=== PATIENT | female | born 1945 | race Caucasian/White ===

== ENCOUNTER 2018-02-03 09:48 | Outpatient (CLI) | payer OTHER ==
--- NOTE | 2018-02-03 10:43 | CT ---
EXAM: CT of the chest without contrast History: Abnormal chest radiograph Comparison: Chest radiograph 03/28/2013, CT abdomen pelvis 12/16/2015 Technique: Multiplanar CT images through the thorax were obtained without the administration of IV c ontrast. Findings: Heart size is within normal limits. Coronary artery calcifications. No thoracic aortic a neurysm. No pathologically enlarged thoracic lymph nodes. Calcified bilateral hilar lymph nodes and calcified granulomas seen within the left lung. There is a micronodular infiltrate within the left l ower lobe with some of the nodules probably partially calcified. No pleural fluid and no pneumothorax . No change in the 6 mm right lower lobe noncalcified nodule. Within the visualized upper abdomen, atherosclerotic vascular calcifications of the abdominal aorta a nd its branches. Mild circumferential wall thickening of the distal esophagus. Calcified granulomas within the spleen. No acute osseous abnormalities. Impression: 1. Left lower lobe micronodular infiltrate with some of the nodules calcified and partially calcifie d. This is probably due to old granulomatous disease but recommend follow-up chest CT in 6 months to document stability or resolution. 2. Stable benign 6 mm right lower lobe lung nodule. 3. Coronary artery disease. 4. Mild circumferential wall thickening of the distal esophagus. This could represent esophagitis. Neoplasm not excluded. Recommend upper endoscopy.
== END 2018-02-03 09:49 | disposition home or self-care (01) ==
LOC: RAD 09:48
PROVIDERS: ATTEND Family Medicine
DX: R93.8 Abnormal findings on diagnostic imaging of other specified body structures (principal)

== ENCOUNTER 2018-02-07 12:31 | Outpatient (CLI) ==
--- NOTE | 2018-02-07 14:15 | DEXA ---
EXAM: Bone Densitometry DEXA HISTORY: Postmenopausal COMPARISON: None FINDINGS: DEXA scan of the lumbar spine was performed. Quality of the study is good. Bone mineral density is 1 .183 grams per square centimeter. T-score is 0.0. Z-score is 0.7. DEXA scan right and left hip was performed. Quality of the study is good. Bone mineral density mean total is 1.042 grams per square centimeter. T-score is 0.3 Z-score is .2. Bone mineral density of the mean femoral neck is 0.902 with a T score of negative 1.0 and a Z score of 0.2. IMPRESSION: 1. Lumbar spine: Normal bone marrow density. 2. Right and left hip: Normal bone marrow density 3. Right and left femoral neck: Borderline osteopenia 4. 10 year risk for major osteoporotic fracture is 9.1% and for hip fracture is 1.2%. Reference Values according to World Health Organization criteria: T score greater than -1 is normal T score -1 to -2.5 is osteopenia T score less than -2.5 is osteoporosis.
== END 2018-02-07 12:32 | disposition home or self-care (01) ==
LOC: RAD 12:31
PROVIDERS: ATTEND Family Medicine
DX: Z12.31 Encounter for screening mammogram for malignant neoplasm of breast (principal); Z78.0 Asymptomatic menopausal state; Z13.820 Encounter for screening for osteoporosis
CPT/HCPCS: 77067

== ENCOUNTER 2022-05-13 20:08 | Observation (INO) ==
--- NOTE | 2022-05-13 20:13 | ED.PDOC ---
General ED Provider: Dr. MAKAYLA BROWNING Chief Complaint: Chest Pain Stated Complaint: Comes to the ER by EMS with chest pain radiating to the left Jaw and left arm that start two hours ago. 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 She had a chemical stress test Two years ago by Dr Pop in [place]. Time Seen by Provider: 05/13/22 20:13 Primary Care Provider: STACEY THAPA Nursing and Triage Documentation Reviewed and Agree: Yes Does patient meet sepsis criteria?: No System Inflammatory Response Syndrome: Temp 101F or Greater and Temp 96.8F or Lower Sepsis Protocol: For patient's 13 years and over: Temp is 96.8 and below OR 101 and greater Pulse >90 BPM Resp >20/minute Acutely Altered Mental Status Are patient's symptoms suggestive of a new infection, such as: -Pneumonia -Skin, Soft Tissue -Endocarditis -UTI -Bone, Joint Infection -Implantable Device -Acute Abdominal Infection -Wound Infection -Meningitis -Blood Stream Catheter Infection -Unknown Review of Systems Review Of Systems Constitutional: Reports No symptoms Eyes: Reports No symptoms Ears, Nose, Mouth, Throat: Reports No symptoms Respiratory: Reports No symptoms Cardiac: Reports Chest pain GI: Reports No symptoms : Reports No symptoms Musculoskeletal: Reports No symptoms Skin: Reports No symptoms Neurological: Reports Anxiety Hematologic/Lymphatic: Reports No symptoms All Other Systems: Reviewed and Negative [facility] Medical History (Updated 05/13/22 @ 22:15 by MAKAYLA BROWNING MD) Acute arthritis History of seasonal allergies Hypertension Thyroid disease Family History Mother Cardiac disease FATHER Cardiac disease BROTHER Cardiac disease Surgical History (Updated 03/24/20 @ 08:47 by [email or web address] [place]) Status post angioplasty of vein Status post appendectomy Physical Exam Physical Exam Appearance: Reports Ill-appearing Ill-appearing: Mild Pain Distress: Severe Eyes: Reports FARIBA, EOMI and Conjunctiva clear ENT: Reports Nose normal Neck: Supple Respiratory: Reports Airway patent, Breath sounds clear and Breath sounds equal Cardiovascular: Reports RRR, Pulses normal, No rub and No murmur GI/: Reports Not Examined Musculoskeletal: Reports Normal strength, ROM intact and No edema Skin: Reports Warm, Dry and Normal color Neurological: Reports Motor intact, Alert and Oriented Psychiatric: Reports Anxious Interpretation Radiology Interpretation Radiology Interpretation By: Radiologist Radiology Results: Positive (Low lung volumes with basilar atelectasis and chronic elevation of the hemidiaphragm on the right compared to the left.) Exam Interpreted: Portable CXR EKG Interpretation Rate: Normal Rhythm: Sinus (with sinus arrhytmia ) Ectopy: None [place]: Left ST Segment: Normal Interpretation: RBBB Re-Evaluation Re-Evaluation Time of Re-Evaluation: 20:49 Status: Improved Vital Signs Stable: Yes Pain Level: gone after 1 nitro Appearance: NAD Physician Notification Case Discussed Physician Notified: Dr Fernando Time of Notification: 21:50 (Admit to Hospitalist and consult Dr Webb.) Critical Care Note Critical Care Note Total Critical Care Time (mins): 0 Course Course Hematology/Chemistry: 05/13/22 20:30 05/13/22 20:30 Orders, Labs, Meds: Lab Review 05/13/22 05/13/22 05/13/22 20:30 20:30 20:35 WBC 7.12 RBC 5.00 Hgb 14.5 Hct 43.5 MCV 87.0 MCH 29.0 MCHC 33.3 RDW Coeff of [place] 13.2 Plt Count 249 Immature Gran % (Auto) 0.7 Neut % (Auto) 67.9 Lymph % (Auto) 21.2 [place] % (Auto) 6.3 Eos % (Auto) 3.2 Baso % (Auto) 0.7 Neut # (Auto) 4.8 Lymph # (Auto) 1.5 [place] # (Auto) 0.5 Eos # (Auto) 0.2 Baso # (Auto) 0.1 Immature Gran # (Auto) 0.1 Sodium 139.6 Potassium 4.32 Chloride 104.9 Carbon Dioxide 25.5 Anion Gap 13.52 BUN 19.2 H Creatinine 1.36 H Estimated GFR (MDRD) 38.00 BUN/Creatinine Ratio 14.11 Glucose 142.7 H Calcium 9.35 Total Bilirubin 0.39 AST 28.5 ALT 13.9 Alkaline Phosphatase 79.2 Total Creatine Kinase 43.6 Troponin I 0.063 Total Protein 8.90 H Albumin 4.75 Globulin 4.15 Albumin/Globulin Ratio 1.14 Urine Color Urine Clarity Urine pH Ur Specific [place] Urine Protein Urine Glucose (UA) Urine Ketones Urine Blood Urine Nitrite Urine Bilirubin Urine Urobilinogen Ur Leukocyte Esterase Ur Squamous Epith Cells Urine Bacteria SARS CoV-2 RNA Rapid ALEXANDRU Negative 05/13/22 20:35 WBC RBC Hgb Hct MCV MCH MCHC RDW Coeff of [place] Plt Count Immature Gran % (Auto) Neut % (Auto) Lymph % (Auto) [place] % (Auto) Eos % (Auto) Baso % (Auto) Neut # (Auto) Lymph # (Auto) [place] # (Auto) Eos # (Auto) Baso # (Auto) Immature Gran # (Auto) Sodium Potassium Chloride Carbon Dioxide Anion Gap BUN Creatinine Estimated GFR (MDRD) BUN/Creatinine Ratio Glucose Calcium Total Bilirubin AST ALT Alkaline Phosphatase Total Creatine Kinase Troponin I Total Protein Albumin Globulin Albumin/Globulin Ratio Urine Color Yellow Urine Clarity Clear Urine pH 6.5 Ur Specific [place] 1.025 Urine Protein 1+ H Urine Glucose (UA) Negative Urine Ketones Negative Urine Blood Negative Urine Nitrite Negative Urine Bilirubin Negative Urine Urobilinogen 0.2 Ur Leukocyte Esterase Negative Ur Squamous Epith Cells 2-5 Urine Bacteria Trace SARS CoV-2 RNA Rapid ALEXANDRU Orders Category Date Time Status EKG-(ED ONLY) Stat CARDIO 05/13/22 20:21 Completed ED APPLY O2 .ONCE EMERGENCY 05/13/22 20:21 Active ED ENTERPRISE APPLICATION DEVELOPER APPLIED .ONCE EMERGENCY 05/13/22 20:21 Active ED IV/MEDIPORT/POWERPORT .ONCE EMERGENCY 05/13/22 20:21 Active CBC W/ AUTO DIFF Stat LAB 05/13/22 20:30 Completed COMPREHENSIVE METABOLIC PANEL Stat LAB 05/13/22 20:30 Completed CREATINE KINASE Stat LAB 05/13/22 20:30 Completed SARS COV-2 RNA RAPID ALEXANDRU Stat LAB 05/13/22 20:35 Completed TROPONIN I Stat LAB 05/13/22 20:30 Completed URINALYSIS C & S IF INDICATED Stat LAB 05/13/22 20:35 Completed 0.9 % Sodium Chloride [Saline Flush] MEDS 05/13/22 20:21 Active 1 syr IVF PRN PRN Nitroglycerin [Nitrostat] MEDS 05/13/22 20:30 Discontinued 0.4 mg SL .STK-MED ONE Nitroglycerin [Nitrostat] MEDS 05/13/22 20:21 Active 0.4 mg SL Q5MIN X 3 DOSES PRN Sodium Chloride 0.9% [Sodium Chloride] 1,000 ml MEDS 05/13/22 20:21 Active IV 125 mls/hr CHEST, 1V AP ONLY Stat RADS 05/13/22 20:21 Completed Medications Generic Name Dose Route Start Last Admin Trade Name Freq PRN Reason Stop Dose Admin Acetaminophen 650 mg 05/13/22 21:59 Acetaminophen 325 Mg Tablet PO Q4H PRN Fever and Mild Pain Clopidogrel Bisulfate 75 mg 05/14/22 09:00 Clopidogrel Bisulfate 75 Mg Tablet PO DAILY [facility] Enalapril Maleate 10 mg 05/14/22 09:00 Enalapril Maleate 5 Mg Tablet PO DAILY [facility] Enoxaparin Sodium 30 mg 05/14/22 09:00 Enoxaparin Sodium 30 Mg/0.3 Ml Syr SUBCUT DAILY [facility] Hydromorphone HCl 1 mg 05/13/22 21:59 Hydromorphone Hcl 1 Mg/Ml Syringe IVP Q6HR PRN Severe Pain Sodium Chloride 1,000 mls @ 125 mls/hr 05/13/22 20:21 05/13/22 20:28 Sodium Chloride IV 05/14/22 04:20 125 mls/hr .Q8H STA Administration Sodium Chloride 1,000 mls @ 75 mls/hr 05/13/22 22:00 Sodium Chloride IV .[id number] [facility] Levothyroxine Sodium 88 mcg 05/14/22 09:00 Levothyroxine Sodium 88 Mcg Tablet PO DAILY [facility] Lorazepam 0.5 mg 05/14/22 09:00 Lorazepam 0.5 Mg Tablet PO DAILY [facility] Meloxicam 10 mg 05/14/22 09:00 Meloxicam 7.5 Mg Tablet PO DAILY [facility] Nitroglycerin 0.4 mg 05/13/22 20:21 05/13/22 20:31 Nitroglycerin 0.4 Mg Tab.Subl SL 0.4 mg Q5MIN X 3 DOSES PRN Administration Chest Pain Non-Formulary Medication 1 each 05/14/22 09:00 Metoprolol Fernandez-Hydrochlorothiaz PO BID [facility] Ondansetron HCl 4 mg 05/13/22 21:59 Ondansetron Hcl/Pf 4 Mg/2 Ml Sdv IVP Q6H PRN Nausea / Vomiting Sodium Chloride 1 syr 05/13/22 20:21 0.9% Sodium Chloride 10 Ml Disp.Syrin IVF PRN PRN To flush IV Vital Signs: Temp Pulse Resp BP Pulse Ox 05/13/22 20:09 96.8 F L 84 22 H 221/110 H 98 NEIL Risk Score Age >/= 65: Yes >/= 3 CAD Risk Factors: Yes Known CAD (Stenosis >/= 50%): No ASA Use in Past 7 Days: Yes Severe Angina (>/= 2 episodes in 24 hours): No EKG ST Changes >/= 0.5mm: No Postive Cardiac Marker: No NEIL Total Score: 3 NEIL Risk Score: Risk Score Odds of by 30D 0 0.1 (0.1-0.2) 1 0.3 (0.2-0.3) 2 0.4 (0.3-0.5) 3 0.7 (0.6-0.9) 4 1.2 (1.0-1.5) 5 2.2 (1.9-2.6) 6 3.0 (2.5-3.6) 7 4.8 (3.8-6.1) Discharge Plan Discharge Patient Disposition: PLACED OBSERVATION Discharge Problem: Chest pain, Angina pectoris, unspecified Did you review [place] SURVEILLANCE TECHNICIAN?: Not Applicable ED Provider: MAKAYLA BROWNING Condition: Fair Physician Progress Note: []
[2022-05-13] MEDS ORDERED: SODIUM CHLORIDE 1,000 ML IV STA (20:21)
[2022-05-13] MEDS ORDERED: NITROSTAT SL PRN (20:21)
[2022-05-13] MEDS ORDERED: NITROSTAT SL ONE (20:30)
[2022-05-13 20:36] LABS: BASOPHILS # (AUTO) 0.1 K/uL (0-0.2); BASOPHILS % (AUTO) 0.7 % (0.0-3.0); EOSINOPHILS # (AUTO) 0.2 K/ul (0.0-0.7); EOSINOPHILS % (AUTO) 3.2 % (0.0-7.0); HEMATOCRIT 43.5 % (37.0-47.0); HEMOGLOBIN 14.5 g/dl (12.0-16.0); IMMATURE GRANULOCYTE # (AUTO) 0.1 (0.0-1.0); IMMATURE GRANULOCYTE % (AUTO) 0.7 % (0.0-5.0); LYMPHOCYTES # (AUTO) 1.5 K/uL (0.60-3.4); LYMPHOCYTES % (AUTO) 21.2 (10.0-50.0); MEAN CORPUSCULAR HGB CONC 33.3 (31.8-35.4); MONOCYTES # (AUTO) 0.5 K/uL (0.4-2.0); MONOCYTES % (AUTO) 6.3 (0-10); NEUTROPHILS # (AUTO) 4.8 K/ul (2.0-6.9); NEUTROPHILS % (AUTO) 67.9 % (42.2-75.2); PLATELET COUNT 249 10^3/uL (140-440); RDW COEFFICIENT OF VARIATION 13.2 % (11.6-14.8); WHITE BLOOD COUNT 7.12 K/ul (4.6-10.2)
[2022-05-13 20:47] LABS: ALANINE AMINOTRANSFERASE 13.9 U/L (0-35); ALBUMIN 4.75 g/dL (3.5-5.0); ALKALINE PHOSPHATASE 79.2 U/L (53-141); ASPARTATE AMINO TRANSFERASE 28.5 U/L (14-36); BILIRUBIN,TOTAL 0.39 mg/dL (0.2-1.3); BLOOD UREA NITROGEN 19.2 mg/dL (7-17); CALCIUM 9.35 mg/dL (8.4-10.2); CARBON DIOXIDE 25.5 mmol/L (22-30.0); CHLORIDE 104.9 mmol/L (98-107); CREATINE KINASE 43.6 U/L (30-135); CREATININE 1.36 mg/dL (0.60-1.30); GLUCOSE 142.7 mg/dL (74-106); POTASSIUM 4.32 mmol/L (3.5-5.1); SODIUM 139.6 mmol/L (134.5-145); TOTAL PROTEIN 8.9 g/dL (6.3-8.2)
[2022-05-13 20:51] LABS: BILIRUBIN,URINE Negative (NEGATIVE); CLARITY,URINE Clear (CLEAR); COLOR,URINE Yellow (YELLOW); GLUCOSE, URINE (UA) Negative (NEGATIVE); KETONES,URINE Negative (NEGATIVE); LEUKOCYTE ESTERASE ,URINE Negative (NEGATIVE); NITRITE,URINE Negative (NEGATIVE); PH,URINE 6.5 (5-9); PROTEIN,URINE 1+ (NEGATIVE); URINE, BLOOD Negative (NEGATIVE); UROBILINOGEN,URINE 0.2 (0.2)
--- NOTE | 2022-05-13 20:55 | DI ---
EXAM: Single view of the chest. History: Chest pain. Findings: Heart size is normal. No consolidation. No pleural fluid and no pneumothorax. Coronary calcifications. No acute osseous abnormalities. Calcified granulomas are seen within the thorax. Impression: 1. No acute cardiopulmonary process. 2. Coronary artery disease
[2022-05-13 20:57] LABS: BACTERIA,URINE TRACE (NOT PRESENT)
[2022-05-13 20:58] LABS: TROPONIN I 0.063 ng/ml (0.0000-0.120)
[2022-05-13] MEDS ORDERED: ZOFRAN 4 MG/2 ML IVP PRN (21:59)
[2022-05-13] MEDS ORDERED: DILAUDID 1 MG/ML SYRINGE IVP PRN (21:59)
[2022-05-13] MEDS ORDERED: TYLENOL PO PRN (21:59)
[2022-05-13 22:50] VITALS: BMI 32.1
[2022-05-13] MEDS ORDERED: ATIVAN PO SCH (23:09)
[2022-05-13] MEDS: LOPRESSOR PO SCH (23:30)
[2022-05-14 04:24] LABS: BASOPHILS % (AUTO) 0.7 % (0.0-3.0); EOSINOPHILS # (AUTO) 0.1 K/ul (0.0-0.7); EOSINOPHILS % (AUTO) 2.3 % (0.0-7.0); HEMATOCRIT 37.1 % (37.0-47.0); HEMOGLOBIN 12.4 g/dl (12.0-16.0); IMMATURE GRANULOCYTE % (AUTO) 0.2 % (0.0-5.0); LYMPHOCYTES # (AUTO) 1.7 K/uL (0.60-3.4); LYMPHOCYTES % (AUTO) 29.9 (10.0-50.0); MEAN CORPUSCULAR HEMOGLOBIN 29.2 pg (27.0-31.0); MEAN CORPUSCULAR HGB CONC 33.4 (31.8-35.4); MEAN CORPUSCULAR VOLUME 87.5 fl (81.0-99.0); MONOCYTES # (AUTO) 0.5 K/uL (0.4-2.0); NEUTROPHILS # (AUTO) 3.4 K/ul (2.0-6.9); NEUTROPHILS % (AUTO) 58.9 % (42.2-75.2); PLATELET COUNT 233 10^3/uL (140-440); RDW COEFFICIENT OF VARIATION 13.2 % (11.6-14.8); RED BLOOD COUNT 4.24 10^6/ul (4.20-5.40); WHITE BLOOD COUNT 5.76 K/ul (4.6-10.2)
[2022-05-14] MEDS: SODIUM CHLORIDE 1,000 ML IV SCH ×2 (04:32→17:14)
[2022-05-14 04:37] LABS: BLOOD UREA NITROGEN 16.2 mg/dL (7-17); CALCIUM 9.21 mg/dL (8.4-10.2); CHLORIDE 110.1 mmol/L (98-107); CREATININE 0.95 mg/dL (0.60-1.30); GLUCOSE 106.6 mg/dL (74-106); POTASSIUM 4.01 mmol/L (3.5-5.1); SODIUM 141.1 mmol/L (134.5-145)
[2022-05-14 05:06] LABS: CREATINE KINASE 153.3 U/L (30-135)
[2022-05-14 05:24] LABS: CREATINE KINASE MB 13.2 ng/ml (0.0-2.38); TROPONIN I 3.75 ng/ml (0.0000-0.120)
[2022-05-14] MEDS ORDERED: ASPIRIN CHEWABLE PO STA (05:31)
[2022-05-14] MEDS ORDERED: SYNTHROID PO SCH (06:30)
[2022-05-14] MEDS ORDERED: VASOTEC PO SCH (09:00)
[2022-05-14] MEDS ORDERED: NORVASC PO SCH (09:00)
[2022-05-14] MEDS ORDERED: MOBIC PO SCH (09:00)
[2022-05-14] MEDS ORDERED: ATIVAN PO SCH (09:00)
[2022-05-14] MEDS ORDERED: METOPROLOL SU HYDROCHLOROTHIAZ PO SCH (09:00)
[2022-05-14] MEDS ORDERED: PLAVIX PO SCH (09:00)
[2022-05-14] MEDS ORDERED: LOVENOX SUBCUT SCH (09:00)
[2022-05-14] MEDS: LOPRESSOR PO SCH (09:26)
[2022-05-14] MEDS ORDERED: LIPITOR PO SCH (10:06)
[2022-05-14] MEDS ORDERED: IMDUR PO SCH (10:30)
--- NOTE | 2022-05-14 11:41 | PCM.DC ---
Final Diagnosis: NonSTEMI Physical Exam Appearance: Well-appearing Ill-appearing: None Pain Distress: None Eyes: FARIBA ENT: Oropharynx normal Neck: Supple Respiratory: Airway patent and Breath sounds clear Cardiovascular: RRR and Pulses normal GI/: Soft and Nontender Musculoskeletal: Normal strength and ROM intact Neurological: Sensation intact, Motor intact and Alert Psychiatric: Affect appropriate and Mood appropriate (1) Acute coronary syndrome: Status: Acute Code(s): I24.9 - Acute ischemic heart disease, unspecified SNOMED Code(s): 289828825 (2) Non-STEMI (non-ST elevated myocardial infarction): Status: Acute Code(s): I21.4 - Non-ST elevation (NSTEMI) myocardial infarction SNOMED Code(s): 97477114 Reason for Hospitalization: Chest pain. Prognosis/Condition at Discharge: Stable for transfer to [facility] at [facility] where Dr. Pop is at. Medications at Discharge: Medications at Discharge (Home Meds & RX) clopidogrel 75 mg tablet 75 mg PO DAILY 03/14/19 enalapril maleate 10 mg tablet 10 mg PO DAILY 03/14/19 levothyroxine 88 mcg tablet 88 mcg PO DAILY 03/14/19 lorazepam 0.5 mg tablet (Ativan) 0.5 mg PO BEDTIME 03/14/19 amlodipine 10 mg tablet 10 mg PO DAILY 05/13/22 metoprolol tartrate 50 mg tablet 50 mg PO BID 05/13/22 Lab/Diagnostics: Laboratory Tests 05/13/22 05/13/22 05/13/22 20:30 20:30 20:35 WBC 7.12 RBC 5.00 Hgb 14.5 Hct 43.5 MCV 87.0 MCH 29.0 MCHC 33.3 RDW Coeff of Crystal 13.2 Plt Count 249 Immature Gran % (Auto) 0.7 Neut % (Auto) 67.9 Lymph % (Auto) 21.2 [place] % (Auto) 6.3 Eos % (Auto) 3.2 Baso % (Auto) 0.7 Neut # (Auto) 4.8 Lymph # (Auto) 1.5 [place] # (Auto) 0.5 Eos # (Auto) 0.2 Baso # (Auto) 0.1 Immature Gran # (Auto) 0.1 Sodium 139.6 Potassium 4.32 Chloride 104.9 Carbon Dioxide 25.5 Anion Gap 13.52 BUN 19.2 H Creatinine 1.36 H Estimated GFR (MDRD) 38.00 BUN/Creatinine Ratio 14.11 Glucose 142.7 H Calcium 9.35 Total Bilirubin 0.39 AST 28.5 ALT 13.9 Alkaline Phosphatase 79.2 Total Creatine Kinase 43.6 CK-MB (CK-2) CK-MB (CK-2) % Troponin I 0.063 Total Protein 8.90 H Albumin 4.75 Globulin 4.15 Albumin/Globulin Ratio 1.14 Urine Color Urine Clarity Urine pH Ur Specific [place] Urine Protein Urine Glucose (UA) Urine Ketones Urine Blood Urine Nitrite Urine Bilirubin Urine Urobilinogen Ur Leukocyte Esterase Ur Squamous Epith Cells Urine Bacteria SARS CoV-2 RNA Rapid ALEXANDRU Negative 05/13/22 05/14/22 05/14/22 20:35 04:20 04:20 WBC 5.76 RBC 4.24 Hgb 12.4 Hct 37.1 D MCV 87.5 MCH 29.2 MCHC 33.4 RDW Coeff of [place] 13.2 Plt Count 233 Immature Gran % (Auto) 0.2 Neut % (Auto) 58.9 Lymph % (Auto) 29.9 [place] % (Auto) 8.0 Eos % (Auto) 2.3 Baso % (Auto) 0.7 Neut # (Auto) 3.4 Lymph # (Auto) 1.7 [place] # (Auto) 0.5 Eos # (Auto) 0.1 Baso # (Auto) 0.0 Immature Gran # (Auto) 0.0 Sodium Potassium Chloride Carbon Dioxide Anion Gap BUN Creatinine Estimated GFR (MDRD) BUN/Creatinine Ratio Glucose Calcium Total Bilirubin AST ALT Alkaline Phosphatase Total Creatine Kinase 153.3 H CK-MB (CK-2) 13.200 H* CK-MB (CK-2) % 8.6100 Troponin I 3.750 H* Total Protein Albumin Globulin Albumin/Globulin Ratio Urine Color Yellow Urine Clarity Clear Urine pH 6.5 Ur Specific [place] 1.025 Urine Protein 1+ H Urine Glucose (UA) Negative Urine Ketones Negative Urine Blood Negative Urine Nitrite Negative Urine Bilirubin Negative Urine Urobilinogen 0.2 Ur Leukocyte Esterase Negative Ur Squamous Epith Cells 2-5 Urine Bacteria Trace SARS CoV-2 RNA Rapid ALEXANDRU 05/14/22 04:20 WBC RBC Hgb Hct MCV MCH MCHC RDW Coeff of [place] Plt Count Immature Gran % (Auto) Neut % (Auto) Lymph % (Auto) [place] % (Auto) Eos % (Auto) Baso % (Auto) Neut # (Auto) Lymph # (Auto) [place] # (Auto) Eos # (Auto) Baso # (Auto) Immature Gran # (Auto) Sodium 141.1 Potassium 4.01 Chloride 110.1 H Carbon Dioxide 24.0 Anion Gap 11.01 BUN 16.2 Creatinine 0.95 Estimated GFR (MDRD) 57.00 BUN/Creatinine Ratio 17.05 Glucose 106.6 H Calcium 9.21 Total Bilirubin AST ALT Alkaline Phosphatase Total Creatine Kinase CK-MB (CK-2) CK-MB (CK-2) % Troponin I Total Protein Albumin Globulin Albumin/Globulin Ratio Urine Color Urine Clarity Urine pH Ur Specific [place] Urine Protein Urine Glucose (UA) Urine Ketones Urine Blood Urine Nitrite Urine Bilirubin Urine Urobilinogen Ur Leukocyte Esterase Ur Squamous Epith Cells Urine Bacteria History: Chest pain. Findings: Heart size is normal. No consolidation. No pleural fluid and no pneumothorax. Coronary calcifications. No acute osseous abnormalities. Calcified granulomas are seen within the thorax. Impression: 1. No acute cardiopulmonary process. 2. Coronary artery disease EKG - at 0537 today, NSR at 68. Inc. RBBB. No ectopy. Normal axes. No ST or TW changes. Education Provided to Patient and Family: Per nursing staff. Follow-ups: Dr. Pop after d/c from [facility], and PCP Dr. Garces. Discharge Disposition: Transfer Hospital Course: Admitted with CP, which resolved with one NTG and has not returned. EKG had borderline ischemic changes in ED, resolved. Initial troponin neg, repeat after admit elevate at 3.7. Discussed with her drainlayer, Dr. Pop, he would like her transferred to [facility], awaiting a bed to open up. Seen here by Dr. Webb, echo unremarkable with normal LV function and EF. Patient is on lovenenox, ASA, and plavix. Added NTP. Patient intolerant of statins. No beds at [facility], to [facility], drainlayer Dr. Pelletier accepts, who would like patient heparinized vs. lovenox. Nursing staff informed they did not have time to start heparin before transfer, should not be a problem, had lovenox. Plan: Transfer to [facility]. Dx NSTEMI. This d/c note done after a [id number]-ufav evaluation, and with documentation requiring 45 minutes of time.
[2022-05-14] MEDS ORDERED: NITRO-BID TD SCH (12:00)
[2022-05-14 12:27] LABS: CREATINE KINASE 181.5 U/L (30-135)
[2022-05-14 12:44] LABS: CREATINE KINASE MB 13.4 ng/ml (0.0-2.38)
[2022-05-14 12:45] LABS: TROPONIN I 4.66 ng/ml (0.0000-0.120)
--- NOTE | 2022-05-14 13:20 | ECHO2D ---
Date of Exam: 05/14/2022 Ordering Physician: DR. THAPA Room #: [id number] Reason for Echo: CHEST PAIN, ANGINA M-Mode Normal Adult Results LV Dimensions Normal Adult Results AoV Opening excursions >1.6 >1.6 LVEDD-base- 3.5-5.8 4.3 Ao root dimensions 2.0-3.7 3.0 LVESD-base- 3.1-4.6 L. Atrium dimensions 1.9-3.8 4.4 Post. Wall thickness 0.8-1.1 1.3 IV septum (thickness) 0.7-1.2 1.3 Post. Wall excursion 0.72-1.3 NORMAL Septal motion NORMAL Systolic motion R. Ventricular cavity 1.5-2.0 NORMAL LVEF 60% 64% Paradoxical septal wall motion NORMAL 2-D : ENLARGED LEFT ATRIAL CAVITY 2-D M Mode Echocardiogram was performed using apical four chamber and left parasternal long and short axis views. Mitral, tricuspid and aortic valves appear to be normal. Contractility of the left ventricle seems to be normal, so is the cavity size. Enlarged left atrial cavity seen. Aortic root appears to be normal. There is no pericardial effusion. There is no thrombus noted in the left ventricle or left atrial cavity. M-MODE: MV: NORMAL AV: NORMAL TV: NORMAL PV: CHAMBER SIZE: ENLARGED LEFT ATRIAL CAVITY WALL MOTION: NORMAL PERICARDIUM: NORMAL INTERPRETATION: 1. LEFT VENTRICULAR HYPERTROPHY WITH ENLARGED LEFT ATRIAL CAVITY 2. NORMAL LEFT VENTRICULAR CONTRACTILITY AND LEFT VENTRICLE SIZE 3. NORMAL VALVES MTDD
[2022-05-14 13:23] VITALS: BP 153/72; TEMP 97
[2022-05-15] MEDS ORDERED: ASPIRIN EC PO SCH (08:30)
[2022-05-15] MEDS ORDERED: ASPIRIN CHEWABLE PO SCH (09:00)
--- NOTE | 2022-05-17 13:28 | CONS ---
DATE OF CONSULTATION: 05/14/22 REASON FOR CONSULTATION: Chest pain HISTORY OF PRESENT ILLNESS: 76 year old white female came to the emergency room on 05/13/22 with having jaw pain both sides going to the left shoulder and left arm, part of the chest which lasted two hours and was relieved when she was given nitroglycerin in the emergency room. The patient has similar episode nearly a week ago. She denies of having any sweating maybe she was mildly short of breath at the time when the chest pain was there. REVIEW OF SYSTEMS: CONSTITUTIONAL: No night sweats. No fatigue, malaise, lethargy. No fever or chills. HEENT: Eyes: No visual changes. No eye pain. No eye discharge. ENT: No sinus drainage. No epistaxis. No sinus pain. No sore throat. No odynophagia. No ear pain. No congestion. RESPIRATORY: No cough, no congestion. No hemoptysis. No shortness of breath. CARDIOVASCULAR: No angina symptoms. No CHF symptoms. No atypical chest pain for CAD. No palpitations. No orthopnea. GASTROINTESTINAL: No abdominal pain. No nausea or vomiting. No diarrhea or constipation. No hematemesis. No hematochezia. GENITOURINARY: No urgency. No frequency. No dysuria. No hematuria. No obstructive symptoms. No discharge. No pain. No significant abnormal bleeding. MUSCULOSKELETAL: No musculoskeletal pain. No joint swelling. NEUROLOGICAL: No headache. No neck pain. No syncope. No seizures. No dizziness. PSYCHIATRIC: Not anxious. No depression. No suicidal thoughts. No homicidal thoughts. SKIN: No rash. No lesions. No wounds. ENDOCRINE: No unexplained weight loss. No weight gain. HEMATOLOGIC/LYMPHATIC: No anemia. No purpura. No petechiae. No prolonged or excessive bleeding. No palpable lymph nodes. MEDICATIONS: Clopidogrel Enalapril Levothyroxine Ativan Amlodipine Metoprolol ALLERGIES: None PAST MEDICAL HISTORY/PAST SURGICAL HISTORY: Right carotid endarterectomy denies atherosclerosis Hypertension SOCIAL/PERSONAL/FAMILY HISTORY: Family history of heart disease. The patient lives by herself. Nonsmoker. No alcohol abuse. PHYSICAL EXAMINATION: GENERAL: The patient is oriented to time, place and person. VITAL SIGNS: Temperature 97.4, pulse 70, respiratory rate 18, blood pressure 160/80 and pulse ox 93%. HEENT: Head normocephalic, atraumatic. Eyes: Extraocular muscles are intact. Pupils are equal, round and reactive to light and accommodation. Ears: No lesions. Nose appeared normal. Throat: No exudate or erythema. NECK: Supple. No JVD, no carotid bruit. No lymphadenopathy or thyromegaly. LUNGS: Clear to auscultation. Percussion note normal. Chest symmetrical. HEART: S1, S2, no S3. No murmurs. No cyanosis or clubbing. No ascites. Pulses: Dorsalis pedis and posterior tibial pulses +1 bilaterally. ABDOMEN: Soft. Nontender. Bowel sounds active. No CVA tenderness. No mass felt. EXTREMITIES: No edema. Full range of motion of all extremities, equal. NEUROLOGIC: No focal deficit. Cranial nerves II through XII are grossly intact. No headache, no double vision or headache. SKIN: Not dry. Intact. Turgor - normal. LYMPHATIC: No palpable lymph nodes/no lymphedema. MUSCULOSKELETAL: Normal joints with no swelling. Muscle tone is normal. LABS: EKG first one showed ST depression in 1 and AVL. Second EKG today does not show those ST-T wave change present in the first EKG. The patient has right bundle branch block, LVH. Echo showed LVH with normal LV contractility and enlarged LA cavity. The patient's CK positive this morning with MB fraction of 13% with total CK of 154. Troponin 3.7 this morning. Admission CK and Troponin negative. ASSESSMENT: 1. Angina which seems to be stable at present time 2. Ischemic myocardial injury 3. Hypertension 4. Dyslipidemia 5. Anxiety disorder RECOMMENDATIONS: 1. Add Lipitor 40mg PO today and daily AM 2. Imdur 15mg twice a day 3. Continue Lovenox and Plavix 4. Continue Metoprolol and Amlodipine 5. The patient was given extra dose of Vasotec and Amlodipine yesterday 6. At present time the patient's condition is stable. The patient needs further work in a way of coronary angiogram. Has seen Dr. Pop in the past. She had chemical stress test a couple of years ago which was reported as normal. ADDENDUM: The patient has history of left carotid endarterectomy and is followed by vascular surgeon at [facility]. Case discussed with Dr. Madden. He is hospitalist and explained to him that she needs to be transferred for further test in a way of coronary angiogram. CONDITION: Stable, now Thank you very much for referral CODE: Level 5 MTDD
== END 2022-05-14 17:30 | disposition short-term general hospital (02) ==
LOC: ED 20:08 → MEDSURG A 20:08
PROVIDERS: ADMIT Internal Medicine Geriatric Medicine; ATTEND Emergency Medicine
DX: I21.4 Non-ST elevation (NSTEMI) myocardial infarction; F41.9 Anxiety disorder, unspecified; E78.5 Hyperlipidemia, unspecified; Z79.899 Other long term (current) drug therapy; Z20.822 Contact with and (suspected) exposure to COVID-19; I10 Essential (primary) hypertension; Z51.81 Encounter for therapeutic drug level monitoring; I24.9 Acute ischemic heart disease, unspecified

== ENCOUNTER 2024-08-06 10:18 | Inpatient (IN) ==
--- NOTE | 2024-08-06 11:13 | ED.PDOC ---
General ED Provider: Dr. LEE WILL MD Chief Complaint: Non-specific Complaint Stated Complaint: mult aches and pains Time Seen by Provider: 08/06/24 11:22 Information Source: Patient and Family Exam Limitations: No limitations Primary Care Provider: STACEY THAPA Nursing and Triage Documentation Reviewed and Agree: Yes Does Patient Take Opioids?: No Is Patient Opioid Naive?: Yes What is Opioid Naive?: *Opioid Naive implies the patient is not already taking opioids or not chronically receiving opioids on a daily basis. *PRN dosing is not "usually" associated with tolerance. *Patients are at higher risk of over-sedation and aspiration. Is Patient Opioid Tolerant?: No What is Opioid Tolerant?: *Opioid Tolerance implies less than the expected response to an opioid. *Acquired tolerance is defined by the patient taking 60mg of oral morphine daily (or equianalgesic dose of another opioid) for 1 week or more. *Often associated with chronic pain. *May take more than usual dose to achieve desired pain control. Miscellaneous Complaint Exam Febrile Illness/Adult Complaint/Exam Onset/Duration: 2-day history Symptoms Are: Still present Timing: Constant Highest Temperature Recorded: 99.5 Initial Severity: Moderate Current Severity: Moderate Aggravating: Reports None Alleviating: Reports None Associated Signs and Symptoms: Reports Cough, Vomiting, Arthralgia, Myalgia and Altered mental status; Denies Headache, Sore throat, Nausea, Chills, Dysuria or Rash Related History: Reports Similar episode (With influenza years ago) Pseudomonas Risk Factors: Reports None Current Antibiotic Use: No Specific Findings: Absent Meningeal signs, Joint swelling, Erythema, Cellulitis, Lymphadenopathy or CVA tenderness Differential Diagnoses: Abdominal Infection, Bacteremia, Pneumonia, Sepsis and Viremia (Influenza, RSV, COVID) Review of Systems Review Of Systems Constitutional: Reports Fever, Malaise, Weakness and Loss of appetite; Denies Chills or Diaphoresis Eyes: Reports No symptoms Ears, Nose, Mouth, Throat: Reports No symptoms Respiratory: Reports Cough; Denies Shortness of Breath, Stridor or Wheezing Cardiac: Reports No symptoms GI: Reports Vomiting; Denies Diarrhea or Nausea : Denies Burning, Dysuria, Frequency, Flank pain, Hematuria or Urgency Musculoskeletal: Reports Back pain, Joint pain and Muscle stiffness Skin: Reports No symptoms Neurological: Reports Cognitive dysfunction and Weakness Endocrine: Reports No symptoms Hematologic/Lymphatic: Reports No symptoms PFSH Medical History History of left heart catheterization 05/14/2022 Z98.890 - Other specified postprocedural states (ICD-10) Pacemaker 05/17/2022 Z95.0 - Presence of cardiac pacemaker (ICD-10) Non-STEMI (non-ST elevated myocardial infarction) 05/13/22 I21.4 - Non-ST elevation (NSTEMI) myocardial infarction (ICD-10) History of stent insertion of renal artery 2 stents in each kidney Z98.890 - Other specified postprocedural states (ICD-10) Carotid artery disease I77.9 - Disorder of arteries and arterioles, unspecified (ICD-10) Thyroid disease E07.9 - Disorder of thyroid, unspecified (ICD-10) Hypertension I10 - Essential (primary) hypertension (ICD-10) History of seasonal allergies Z88.9 - Allergy status to unspecified drugs, medicaments and biological substances status (ICD-10) Acute arthritis M19.90 - Unspecified osteoarthritis, unspecified site (ICD-10) Family History Mother Cardiac disease FATHER Cardiac disease BROTHER Cardiac disease Social History Smoking and tobacco status: Former smoker Alcohol intake: never Surgical History H/O chest tube placement 05/2022 Z98.890 - Other specified postprocedural states (ICD-10) Status post appendectomy Z90.49 - Acquired absence of other specified parts of digestive tract (ICD- 10) Status post angioplasty of vein Z98.890 - Other specified postprocedural states (ICD-10) Female Reproductive History Menstrual Hx Hysterectomy: No Hx Tubal Ligation: No Physical Exam Physical Exam Appearance: Reports Ill-appearing, No pain distress, Well-nourished and Obese Ill-appearing: Moderate Pain Distress: None Eyes: Reports FARIBA and Conjunctiva clear ENT: Reports Ears normal, Nose normal and Oropharynx normal Neck: Supple Respiratory: Reports Breath sounds clear and Breath sounds equal Cardiovascular: Reports RRR, Pulses normal and No murmur GI/: Reports Soft, Nontender, No masses, Bowel sounds normal and No Organomegaly Musculoskeletal: Reports No calf tenderness, Limited ROM and Edema (Trace on the right) Skin: Reports Warm, Dry and Normal color Neurological: Reports Sensation intact, Motor intact, Cranial nerves intact and Oriented Psychiatric: Reports Depressed Interpretation Radiology Interpretation Radiology Interpretation By: ED Physician Radiology Results: No acute changes Exam Interpreted: CXR Course Course 08/06/24 11:30 08/06/24 11:30 Orders, Labs, Meds: Lab Review 08/06/24 08/06/24 11:28 11:30 WBC 4.73 RBC 4.68 Hgb 13.5 Hct 41.7 MCV 89.1 MCH 28.8 MCHC 32.4 RDW Coeff of Crystal 14.0 Plt Count 198 Immature Gran % (Auto) 0.4 Neut % (Auto) 59.5 Lymph % (Auto) 19.2 [place] % (Auto) 19.9 H Eos % (Auto) 0.2 Baso % (Auto) 0.8 Neut # (Auto) 2.8 Lymph # (Auto) 0.9 [place] # (Auto) 0.9 Eos # (Auto) 0.0 Baso # (Auto) 0.0 Immature Gran # (Auto) 0.0 Sodium 134.0 L Potassium 3.90 Chloride 96.0 L Carbon Dioxide 30.0 Anion Gap 11.90 BUN 22.0 H Creatinine 1.40 H Estimated GFR (MDRD) 36.00 BUN/Creatinine Ratio 15.71 Glucose 112.0 H Lactic Acid 1.60 Calcium 9.40 Total Bilirubin 0.70 AST 83.0 H ALT 49.0 H Alkaline Phosphatase 87.0 Total Protein 8.80 H Albumin 4.40 Globulin 4.40 Albumin/Globulin Ratio 1.00 Influ A Molecular Assay Negative by naat Influ B Molecular Assay Negative by naat RSV Antigen Negative by naat SARS CoV-2 RNA Rapid ALEXANDRU Positive H Orders Category Date Time Status CBC W/ AUTO DIFF Stat LAB 08/06/24 11:30 Completed CMP [COMPREHENSIVE METABOLIC PANEL] Stat LAB 08/06/24 11:30 Completed COVID [SARS COV-2 RNA RAPID ALEXANDRU] Stat LAB 08/06/24 11:28 Completed FLU A & B MOLECULAR [FLU A/B MOLECULAR] Stat LAB 08/06/24 11:28 Completed LACTIC ACID Stat LAB 08/06/24 11:30 Completed RSV Stat LAB 08/06/24 11:28 Completed URINALYSIS C & S IF INDICATED Stat LAB 08/06/24 11:18 Uncollected CXR [CHEST, 1V AP ONLY] Stat RADS 08/06/24 11:21 Completed EXAM: CHEST RADIOGRAPH TECHNIQUE: Single frontal chest radiograph. HISTORY: Cough and fever. COMPARISON: 05/07/2024 and older studies. FINDINGS: The patient is leaning and rotated to the right. The patient's chin and partially obscures the right upper chest. Hypoventilation. Left subclavian dual lead cardiac device, grossly stable in position. Calcified granulomas of the left mid lung, again noted. No pulmonary infiltrate is identified. No pleural effusion or pneumothorax is seen. Heart size is normal. No acute displaced rib fractures are identified. IMPRESSION: 1. No acute findings in the chest. Dictated By: FAHEEM JOE MD Dictated Date/Time: 08/06/24 1141 Vital Signs: Temp Pulse Resp BP Pulse Ox 08/06/24 10:28 99.8 F 91 20 162/79 H 94 L Discharge Plan Discharge Patient Disposition: PLACED OBSERVATION Discharge Problem: COVID-19 in immunocompromised patient Did you review [place] [employer]NAGER for ALL controlled substances?: Not Applicable ED Provider: LEE WILL Condition: Stable Physician Progress Note: Patient seen after triage. Initial discussion with family. Shared decision for placement of labs and x-rays done. COVID-positive. Urinalysis canceled. Discussed with hospitalist. Patient is mildly hypoxic with a saturation of 90% and a respiratory rate of 22. Family is unable to care for her at home.
[2024-08-06 11:34] LABS: BASOPHILS % (AUTO) 0.8 % (0.0-3.0); EOSINOPHILS % (AUTO) 0.2 % (0.0-7.0); HEMATOCRIT 41.7 % (37.0-47.0); HEMOGLOBIN 13.5 g/dl (12.0-16.0); IMMATURE GRANULOCYTE % (AUTO) 0.4 % (0.0-5.0); LYMPHOCYTES # (AUTO) 0.9 K/uL (0.60-3.4); LYMPHOCYTES % (AUTO) 19.2 (10.0-50.0); MEAN CORPUSCULAR HEMOGLOBIN 28.8 pg (27.0-31.0); MEAN CORPUSCULAR HGB CONC 32.4 (31.8-35.4); MEAN CORPUSCULAR VOLUME 89.1 fl (81.0-99.0); MONOCYTES # (AUTO) 0.9 K/uL (0.4-2.0); MONOCYTES % (AUTO) 19.9 (0-10); NEUTROPHILS # (AUTO) 2.8 K/ul (2.0-6.9); NEUTROPHILS % (AUTO) 59.5 % (42.2-75.2); PLATELET COUNT 198 10^3/uL (140-440); RED BLOOD COUNT 4.68 10^6/ul (4.20-5.40); WHITE BLOOD COUNT 4.73 K/ul (4.6-10.2)
--- NOTE | 2024-08-06 11:49 | DI ---
EXAM: CHEST RADIOGRAPH TECHNIQUE: Single frontal chest radiograph. HISTORY: Cough and fever. COMPARISON: 05/07/2024 and older studies. FINDINGS: The patient is leaning and rotated to the right. The patient's chin and partially obscures the right upper chest. Hypoventilation. Left subclavian dual lead cardiac device, grossly stable in position . Calcified granulomas of the left mid lung, again noted. No pulmonary infiltrate is identified. No pleural effusion or pneumothorax is seen. Heart size is normal. No acute displaced rib fractures are identified. IMPRESSION: 1. No acute findings in the chest.
[2024-08-06 11:52] LABS: ALBUMIN 4.4 g/dL (3.5-5.0); BILIRUBIN,TOTAL 0.7 mg/dL (0.2-1.3); CALCIUM 9.4 mg/dL (8.4-10.2); CREATININE 1.4 mg/dL (0.60-1.30); POTASSIUM 3.9 mmol/L (3.5-5.1); TOTAL PROTEIN 8.8 g/dL (6.3-8.2)
[2024-08-06 11:56] LABS: MOLECULAR FLU A NEGATIVE BY NAAT (NEGATIVE); MOLECULAR FLU B NEGATIVE BY NAAT (NEGATIVE); RSV MOLECULAR NEGATIVE BY NAAT (NEGATIVE); SARS COV-2 RNA RAPID NAAT POSITIVE (NEGATIVE)
[2024-08-06] MEDS ORDERED: TYLENOL PO PRN (12:33)
[2024-08-06] MEDS ORDERED: ZOFRAN SDV IVP PRN (12:33)
--- NOTE | 2024-08-06 12:50 | PCM ---
Date of Service Date Seen by Provider: 08/06/24 Time Seen by Provider: 13:00 Admit Day/Time Admission Date: 08/06/24 Admission Time: 12:17 Reason for Admission Chief Complaint: COVID POSITIVE Hospital Provider Hospital Provider: ABDIEL SERRANO PA-C, [facility] Primary Care Physician Primary Care Physician: ANA DUNLAP History of Present Illness History of Present Illness: Patient is a 79 year old female from home who presents for generalized weakness and confusion. Patient's daughter states she started feeling bad on 08/04. She could hardly get up yesterday and slid off the couch into the floor, requiring family's help. This morning she called family again asking to come help her. She was found in ER to have covid. CXR negative. Vitals stable. Labs unremarkable. However family did not feel safe taking her home at this time due to her condition. Case Discussed With Case Discussed With: Patient's case was discussed with the ER Physicians, Dr. Ryan. [facility] Medical History History of left heart catheterization 05/14/2022 Z98.890 - Other specified postprocedural states (ICD-10) Pacemaker 05/17/2022 Z95.0 - Presence of cardiac pacemaker (ICD-10) Non-STEMI (non-ST elevated myocardial infarction) 05/13/22 I21.4 - Non-ST elevation (NSTEMI) myocardial infarction (ICD-10) History of stent insertion of renal artery 2 stents in each kidney Z98.890 - Other specified postprocedural states (ICD-10) Carotid artery disease I77.9 - Disorder of arteries and arterioles, unspecified (ICD-10) Thyroid disease E07.9 - Disorder of thyroid, unspecified (ICD-10) Hypertension I10 - Essential (primary) hypertension (ICD-10) History of seasonal allergies Z88.9 - Allergy status to unspecified drugs, medicaments and biological substances status (ICD-10) Acute arthritis M19.90 - Unspecified osteoarthritis, unspecified site (ICD-10) Surgical History H/O chest tube placement 05/2022 Z98.890 - Other specified postprocedural states (ICD-10) Status post appendectomy Z90.49 - Acquired absence of other specified parts of digestive tract (ICD- 10) Status post angioplasty of vein Z98.890 - Other specified postprocedural states (ICD-10) Family History Mother Cardiac disease FATHER Cardiac disease BROTHER Cardiac disease Social History Smoking and tobacco status: Former smoker Alcohol intake: never Allergies Allergies Allergy/AdvReac Type Severity Reaction Status Date / Time orange juice AdvReac Severe Difficulty Verified 08/06/24 10:43 Swallowing barium iodide AdvReac Verified 08/06/24 10:43 cephalexin (From Keflex) AdvReac Verified 08/06/24 10:43 duloxetine AdvReac Verified 08/06/24 10:43 Iodinated Contrast Media AdvReac Verified 08/06/24 10:43 meloxicam (From Mobic) AdvReac Verified 08/06/24 10:43 NSAIDS (Non-Steroidal AdvReac Verified 08/06/24 10:43 Anti-Inflamma ofloxacin (From Floxin) AdvReac Verified 08/06/24 10:43 Sulfa (Sulfonamide AdvReac Verified 08/06/24 10:43 Antibiotics) Current Medications Home Medications clopidogrel 75 mg tablet 75 mg PO DAILY 03/14/19 [History Confirmed 08/06/24 Last Taken 05/31/22 09:00] enalapril maleate 10 mg tablet 10 mg PO DAILY 03/14/19 [History Confirmed 08/06/24 Last Taken 05/31/22 09:00] levothyroxine 88 mcg tablet 88 mcg PO DAILY 03/14/19 [History Confirmed 08/06/24 Last Taken 05/31/22 06:00] lorazepam 0.5 mg tablet (Ativan) 1 mg PO BEDTIME 03/14/19 [History Confirmed 08/06/24 Last Taken 05/30/22 21:00] metoprolol succinate 50 mg tablet,extended release 24 hr (Toprol XL) 50 mg PO BID #30 tabs 06/08/22 [Rx Confirmed 08/06/24 Last Taken Unknown] acetaminophen 500 mg tablet (Tylenol Extra Strength) 500 mg PO Q6H PRN Pain 01/22 [History Confirmed 08/06/24 Last Taken Unknown] albuterol sulfate 90 mcg/actuation breath activated powder inhaler 2 inh inhalation Q4H PRN shortness of breath #1 ea 10/05/23 [Rx Confirmed 08/06/24 Last Taken Unknown] amlodipine 2.5 mg tablet 5 mg PO BID 10/05/23 [History Confirmed 08/06/24 Last Taken Unknown] atorvastatin 40 mg tablet 40 mg PO DAILY 10/05/23 [History Confirmed 08/06/24 Last Taken Unknown] cholecalciferol (vitamin D3) 50 mcg (2,000 unit) capsule 50 mcg PO DAILY 10/05/23 [History Confirmed 08/06/24 Last Taken Unknown] fluticasone propionate 50 mcg/actuation nasal spray,suspension 2 spray intranasal DAILY PRN allergy symptoms 10/05/23 [History Confirmed 08/06/24 Last Taken Unknown] furosemide 20 mg tablet (Lasix) 20 mg PO DAILY 10/05/23 [History Confirmed 08/06/24 Last Taken Unknown] isosorbide mononitrate 30 mg tablet,extended release 24 hr 60 mg PO DAILY 10/05/23 [History Confirmed 08/06/24 Last Taken Unknown] polyethylene glycol 3350 17 gram/dose oral powder (Miralax) 17 g PO DAILY PRN constipation 10/05/23 [History Confirmed 08/06/24 Last Taken Unknown] potassium chloride 10 mEq tablet,extended release(part/cryst) 10 meq PO DAILY 10/05/23 [History Confirmed 08/06/24 Last Taken Unknown] nitroglycerin 0.4 mg sublingual tablet 0.4 mg sublingual Q5-15M PRN chest pain 08/06/24 [History Confirmed 08/06/24 Last Taken Unknown] ranolazine 500 mg tablet,extended release,12 hr 500 mg PO 2XD 08/06/24 [History Confirmed 08/06/24 Last Taken Unknown] Home Acetaminophen (Acetaminophen 325 Mg Tablet) 650 mg PO Q4H PRN PRN Reason: Mild Pain Enoxaparin Sodium (Enoxaparin Sodium 40 Mg/0.4 Ml Syr) 40 mg SUBCUT DAILY SAKINA Remdesivir 200 mg/ Sodium (Chloride) 250 mls @ 250 mls/hr IV ONCE ONE Stop: 08/06/24 15:13 Ondansetron HCl (Ondansetron Hcl/Pf 4 Mg/2 Ml Sdv) 4 mg IVP Q6H PRN PRN Reason: Nausea / Vomiting Opioid Naive vs. Tolerant Does Patient Take Opioids?: No Is Patient Opioid Naive?: Yes What is Opioid Naive?: *Opioid Naive implies the patient is not already taking opioids or not chronically receiving opioids on a daily basis. *PRN dosing is not "usually" associated with tolerance. *Patients are at higher risk of over-sedation and aspiration. Is Patient Opioid Tolerant?: No What is Opioid Tolerant?: *Opioid Tolerance implies less than the expected response to an opioid. *Acquired tolerance is defined by the patient taking 60mg of oral morphine daily (or equianalgesic dose of another opioid) for 1 week or more. *Often associated with chronic pain. *May take more than usual dose to achieve desired pain control. Review of Systems Constitutional: Reports Fatigue and Weakness Head: Reports Normocephalic and Atraumatic Cardiovascular: Denies Chest pain or Edema Respiratory: Reports Cough Gastrointestinal: Denies Nausea, Vomiting, Diarrhea, Abdominal pain or Melena Neurological: Reports Other (+confusion per family ) Physical examination Most Recent Vital Signs: Most Recent Vital Signs Temperature 99.8 F 08/06/24 10:28 Temperature Source Oral 08/06/24 10:28 Pulse Rate 91 08/06/24 10:28 Respiratory Rate 20 08/06/24 10:28 Blood Pressure 162/79 H 08/06/24 10:28 O2 Sat by Pulse Oximetry 94 L 08/06/24 10:28 Height 5 ft 6 in 08/06/24 10:28 Weight 90.9 kg 08/06/24 10:28 Telemetry Heart Rate 75 06/05/22 07:00 Appearance: Positive No Apparent Distress and Alert and Oriented x3 Skin: Positive [place], Warm, Good Turgor and Good Color; Negative Rashes HEENT: Positive Normocephalic and Atraumatic Neck: Positive Supple and Midline Trachea Chest/Lungs: Positive Clear to Auscultation Bilaterally; Negative Rales, Rhonci or Wheezes Heart: Positive RRR GI/: Positive Soft, Nontender, Bowel Sounds Normal and No Distention Neurological: Positive Cranial Nerves Intact, Alert, Oriented and Other (+generalized weakness ) Psychiatric: Positive Oriented x4, Appropriate Mood, Appropriate Affect and Other (+appears tired) Labs This Visit Labs This Visit: Labs This Visit 08/06/24 08/06/24 11:28 11:30 WBC 4.73 RBC 4.68 Hgb 13.5 Hct 41.7 MCV 89.1 MCH 28.8 MCHC 32.4 RDW Coeff of Crystal 14.0 Plt Count 198 Immature Gran % (Auto) 0.4 Neut % (Auto) 59.5 Lymph % (Auto) 19.2 [place] % (Auto) 19.9 H Eos % (Auto) 0.2 Baso % (Auto) 0.8 Neut # (Auto) 2.8 Lymph # (Auto) 0.9 [place] # (Auto) 0.9 Eos # (Auto) 0.0 Baso # (Auto) 0.0 Immature Gran # (Auto) 0.0 Sodium 134.0 L Potassium 3.90 Chloride 96.0 L Carbon Dioxide 30.0 Anion Gap 11.90 BUN 22.0 H Creatinine 1.40 H Estimated GFR (MDRD) 36.00 BUN/Creatinine Ratio 15.71 Glucose 112.0 H Lactic Acid 1.60 Calcium 9.40 Total Bilirubin 0.70 AST 83.0 H ALT 49.0 H Alkaline Phosphatase 87.0 Total Protein 8.80 H Albumin 4.40 Globulin 4.40 Albumin/Globulin Ratio 1.00 Influ A Molecular Assay Negative by naat Influ B Molecular Assay Negative by naat RSV Antigen Negative by naat SARS CoV-2 RNA Rapid ALEXANDRU Positive H Imaging Imaging: EXAM: CHEST RADIOGRAPH TECHNIQUE: Single frontal chest radiograph. HISTORY: Cough and fever. COMPARISON: 05/07/2024 and older studies. FINDINGS: The patient is leaning and rotated to the right. The patient's chin and partially obscures the right upper chest. Hypoventilation. Left subclavian dual lead cardiac device, grossly stable in position. Calcified granulomas of the left mid lung, again noted. No pulmonary infiltrate is identified. No pleural effusion or pneumothorax is seen. Heart size is normal. No acute displaced rib fractures are identified. IMPRESSION: 1. No acute findings in the chest. Review Statement Review Statement: I have independently reviewed and interpreted the labs/EKGs/imaging that were ordered by the ER provider. I have reviewed all outside records that are available currently in our EMR including imaging/notes/labs from previous visits. Plan Plan: 1. Acute metabolic encephalopathy in setting of covid 19 - Pt confused from her baseline per family, able to answer questions here appropriately but unsafe at home alone. Conservative measures. Treat fever prn. 2. Covid 19 - Discussed remdesivir IV x3, family agreeable. 3. Weakness - ptot consult 4. Hypertension - Cont home meds 5. Hyperlipidemia - Cont home meds 6. CAD - Cont home meds 7. Hypothyroidism - Cont home meds DVT Prophylaxis: Lovenox Time Spent: Greater than 80 minutes spent with patient, 50% of the time spent with this patient was devoted to counseling and coordination of care. [facility] minutes spent discussing advance care planning. Admit to: Obs Discussed Plan of Care with Dr. Inderjit Webb. Medications Medication Orders: Medications Ordered Category Date Time Status Acetaminophen [Tylenol] Meds 08/06/24 12:33 Active 650 mg PO Q4H PRN Ondansetron HCl/Pf [Zofran Sdv] Meds 08/06/24 12:33 Active 4 mg IVP Q6H PRN
[2024-08-06 13:50] VITALS: BMI 30.2
[2024-08-06] MEDS ORDERED: TESSALON PERLES PO PRN (14:38)
[2024-08-06] MEDS ORDERED: VENTOLIN HFA IH PRN (15:05)
[2024-08-06 15:07] LABS: PROTHROMBIN TIME 11.2 SEC (9.3-11.0)
[2024-08-06] MEDS: VEKLURY 200 MG in SODIUM CHLORIDE 250 ML IV ONE (15:38)
[2024-08-06] MEDS: HYDRALAZINE HCL IVP STA (16:41)
[2024-08-06] MEDS: LIPITOR PO SCH (20:23)
[2024-08-06] MEDS: CHLORASEPTIC SPRAY MM PRN (20:23)
[2024-08-06] MEDS: ATIVAN PO SCH (20:23)
[2024-08-06] MEDS: RANEXA PO SCH (20:23)
[2024-08-06] MEDS: TOPROL XL PO SCH (20:23)
[2024-08-06] MEDS: NORVASC PO SCH (20:23)
[2024-08-06] MEDS: ROBITUSSIN DM SYRUP PO PRN (20:46)
[2024-08-06] MEDS ORDERED: ATIVAN PO SCH (21:00)
[2024-08-07] MEDS: SYNTHROID PO SCH (05:14)
[2024-08-07] MEDS: LASIX TAB PO SCH (05:14)
[2024-08-07 05:34] LABS: BASOPHILS % (AUTO) 0.5 % (0.0-3.0); EOSINOPHILS # (AUTO) 0.1 K/ul (0.0-0.7); EOSINOPHILS % (AUTO) 0.9 % (0.0-7.0); HEMATOCRIT 43.7 % (37.0-47.0); HEMOGLOBIN 14.1 g/dl (12.0-16.0); IMMATURE GRANULOCYTE % (AUTO) 0.4 % (0.0-5.0); LYMPHOCYTES # (AUTO) 0.8 K/uL (0.60-3.4); MEAN CORPUSCULAR HEMOGLOBIN 28.5 pg (27.0-31.0); MEAN CORPUSCULAR HGB CONC 32.3 (31.8-35.4); MEAN CORPUSCULAR VOLUME 88.3 fl (81.0-99.0); MONOCYTES # (AUTO) 0.7 K/uL (0.4-2.0); NEUTROPHILS # (AUTO) 3.9 K/ul (2.0-6.9); NEUTROPHILS % (AUTO) 70.2 % (42.2-75.2); PLATELET COUNT 185 10^3/uL (140-440); RDW COEFFICIENT OF VARIATION 13.8 % (11.6-14.8); RED BLOOD COUNT 4.95 10^6/ul (4.20-5.40); WHITE BLOOD COUNT 5.52 K/ul (4.6-10.2)
[2024-08-07 05:48] LABS: ALANINE AMINOTRANSFERASE 50.4 U/L (0-35); ALBUMIN 4.39 g/dL (3.5-5.0); ALKALINE PHOSPHATASE 75.3 U/L (53-141); ASPARTATE AMINO TRANSFERASE 92.7 U/L (14-36); BILIRUBIN,TOTAL 0.47 mg/dL (0.2-1.3); BLOOD UREA NITROGEN 19.6 mg/dL (7-17); CALCIUM 9.03 mg/dL (8.4-10.2); CARBON DIOXIDE 25.3 mmol/L (22-30.0); CHLORIDE 98.1 mmol/L (98-107); CREATININE 1.03 mg/dL (0.60-1.30); GLUCOSE 130.5 mg/dL (74-106); POTASSIUM 4.1 mmol/L (3.5-5.1); SODIUM 132.9 mmol/L (134.5-145); TOTAL PROTEIN 9.14 g/dL (6.3-8.2)
[2024-08-07] MEDS: HYDRALAZINE HCL ONE (07:13)
[2024-08-07] MEDS ORDERED: NON-FORMULARY MEDICATION (Potassium Chloride 10 mEq tablet,ER particles/crystals) PO SCH (09:00)
[2024-08-07] MEDS: PLAVIX PO SCH (09:05)
[2024-08-07] MEDS: LOVENOX SUBCUT SCH (09:06)
[2024-08-07] MEDS: IMDUR PO SCH (09:06)
[2024-08-07] MEDS: MICRO-K CAP PO SCH (09:06)
[2024-08-07] MEDS: HYDRALAZINE HCL IVP ONE (11:40)
--- NOTE | 2024-08-07 11:45 | PCM.PROG ---
Date/Time Seen Date Seen by Provider: 08/07/24 Time Seen by Provider: 09:00 Provider Provider: ABDIEL SERRANO [facility]-C, [facility] Chief Complaint Chief Complaint: COVID POSITIVE Subjective Subjective: Patient was unable to participate with therapy this morning. Patient lethargic. But does open eyes and answers questions appropriately, then falls right back asleep. Denies any complaints other than sore throat. Has a weak non productive cough. Able to answer her name, place, and that she's in the hospital due to covid. Follows simple commands but very weak. Objective Appearance: Positive No Apparent Distress, Alert and Oriented x3 and Other (+lethargic ) Chest/Lungs: Positive Clear to Auscultation Bilaterally; Negative Rales, Rhonci or Wheezes Heart: Positive RRR GI/: Positive Soft, Nontender, Bowel Sounds Normal and No Distention Neurological: Positive Cranial Nerves Intact and Oriented; Negative Alert (+lethargic) or Muscle Strength 5/5 in Upper and Lower Extremities Bilaterally (+generalized weakness, no focal deficits ) Vital Signs Vital Signs: Vital Signs: Last 24 Hours 08/06/24 13:00 08/06/24 13:35 08/06/24 13:35 Temperature 98.1 F Temperature Source Temporal Artery Scan Pulse Rate 83 Respiratory Rate 21 H Blood Pressure Blood Pressure Mean Blood Pressure Left Arm 184/92 Blood Pressure Location Blood Pressure Position Sitting O2 Sat by Pulse Oximetry 95 Oxygen Delivery Method Room Air Room Air Oxygen Flow Rate Height 5 ft 6 in Weight 85.1 kg Telemetry Type Remote Telemetry Telemetry Monitoring Started Telemetry Heart Rate 79 Telemetry SPO2 93 EKG WA Interval 0.21 H EKG QRS Interval 0.09 Telemetry Strip Reading 1st degree AVB 08/06/24 14:00 08/06/24 14:00 08/06/24 15:00 Temperature 98.1 F Temperature Source Temporal Artery Scan Pulse Rate 83 Respiratory Rate 21 H Blood Pressure 184/92 H Blood Pressure Mean 122 Blood Pressure Left Arm Blood Pressure Location Left Arm Blood Pressure Position Supine O2 Sat by Pulse Oximetry 95 Oxygen Delivery Method Room Air Room Air Room Air Oxygen Flow Rate Height Weight Telemetry Type Telemetry Monitoring Telemetry Heart Rate Telemetry SPO2 EKG WA Interval EKG QRS Interval Telemetry Strip Reading 08/06/24 15:32 08/06/24 16:00 08/06/24 17:00 Temperature 97.7 F Temperature Source Temporal Artery Scan Pulse Rate 70 Respiratory Rate 20 Blood Pressure 171/68 H Blood Pressure Mean 102 Blood Pressure Left Arm Blood Pressure Location Left Arm Blood Pressure Position Sitting O2 Sat by Pulse Oximetry 91 L Oxygen Delivery Method Room Air Room Air Room Air Oxygen Flow Rate Height Weight Telemetry Type Telemetry Monitoring Telemetry Heart Rate Telemetry SPO2 EKG WA Interval EKG QRS Interval Telemetry Strip Reading 08/06/24 18:00 08/06/24 18:00 08/06/24 19:00 Temperature 97.8 F Temperature Source Temporal Artery Scan Pulse Rate 92 Respiratory Rate 15 Blood Pressure 177/78 H Blood Pressure Mean 111 Blood Pressure Left Arm Blood Pressure Location Left Arm Blood Pressure Position Supine O2 Sat by Pulse Oximetry 93 L Oxygen Delivery Method Room Air Room Air Oxygen Flow Rate Height Weight Telemetry Type Remote Telemetry Telemetry Monitoring Continues Telemetry Heart Rate 93 Telemetry SPO2 91 L EKG WA Interval 0.22 H EKG QRS Interval 0.10 Telemetry Strip Reading SR with 1st AVB 08/06/24 19:00 08/06/24 19:32 08/06/24 20:00 Temperature Temperature Source Pulse Rate Respiratory Rate 18 Blood Pressure Blood Pressure Mean Blood Pressure Left Arm Blood Pressure Location Blood Pressure Position O2 Sat by Pulse Oximetry Oxygen Delivery Method Room Air Room Air Room Air Oxygen Flow Rate Height Weight Telemetry Type Telemetry Monitoring Telemetry Heart Rate Telemetry SPO2 EKG WA Interval EKG QRS Interval Telemetry Strip Reading 08/06/24 21:00 08/06/24 21:39 08/06/24 22:00 Temperature 97.8 F Temperature Source Temporal Artery Scan Pulse Rate 84 Respiratory Rate 28 H Blood Pressure 169/68 H Blood Pressure Mean 101 Blood Pressure Left Arm Blood Pressure Location Left Arm Blood Pressure Position Supine O2 Sat by Pulse Oximetry 96 Oxygen Delivery Method Room Air Nasal Cannula Nasal Cannula Oxygen Flow Rate 2 Height Weight Telemetry Type Telemetry Monitoring Telemetry Heart Rate Telemetry SPO2 EKG WA Interval EKG QRS Interval Telemetry Strip Reading 08/06/24 22:55 08/07/24 00:00 08/07/24 01:00 Temperature Temperature Source Pulse Rate Respiratory Rate Blood Pressure Blood Pressure Mean Blood Pressure Left Arm Blood Pressure Location Blood Pressure Position O2 Sat by Pulse Oximetry Oxygen Delivery Method Nasal Cannula Nasal Cannula Nasal Cannula Oxygen Flow Rate Height Weight Telemetry Type Telemetry Monitoring Telemetry Heart Rate Telemetry SPO2 EKG WA Interval EKG QRS Interval Telemetry Strip Reading 08/07/24 01:00 08/07/24 02:00 08/07/24 02:00 Temperature Temperature Source Pulse Rate 82 Respiratory Rate Blood Pressure 165/74 H Blood Pressure Mean 104 Blood Pressure Left Arm Blood Pressure Location Left Arm Blood Pressure Position Supine O2 Sat by Pulse Oximetry Oxygen Delivery Method Nasal Cannula Nasal Cannula Oxygen Flow Rate 2 Height Weight Telemetry Type Bedside Monitor Telemetry Monitoring Continues Telemetry Heart Rate 86 Telemetry SPO2 EKG WA Interval 0.21 H EKG QRS Interval 0.07 Telemetry Strip Reading SR WITH 1ST DEGREE AVB 08/07/24 03:00 08/07/24 03:59 08/07/24 05:00 Temperature Temperature Source Pulse Rate Respiratory Rate Blood Pressure Blood Pressure Mean Blood Pressure Left Arm Blood Pressure Location Blood Pressure Position O2 Sat by Pulse Oximetry Oxygen Delivery Method Nasal Cannula Nasal Cannula Nasal Cannula Oxygen Flow Rate Height Weight Telemetry Type Telemetry Monitoring Telemetry Heart Rate Telemetry SPO2 EKG WA Interval EKG QRS Interval Telemetry Strip Reading 08/07/24 05:56 08/07/24 05:56 08/07/24 06:00 Temperature 97.3 F L Temperature Source Pulse Rate 78 Respiratory Rate 20 Blood Pressure 178/82 H Blood Pressure Mean 114 Blood Pressure Left Arm Blood Pressure Location Left Arm Blood Pressure Position Supine O2 Sat by Pulse Oximetry 96 Oxygen Delivery Method Nasal Cannula Nasal Cannula Nasal Cannula Oxygen Flow Rate 2 2 Height Weight Telemetry Type Telemetry Monitoring Telemetry Heart Rate Telemetry SPO2 EKG WA Interval EKG QRS Interval Telemetry Strip Reading 08/07/24 07:00 08/07/24 07:00 08/07/24 08:00 Temperature Temperature Source Pulse Rate Respiratory Rate Blood Pressure Blood Pressure Mean Blood Pressure Left Arm Blood Pressure Location Blood Pressure Position O2 Sat by Pulse Oximetry Oxygen Delivery Method Nasal Cannula Nasal Cannula Oxygen Flow Rate Height Weight Telemetry Type Bedside Monitor Telemetry Monitoring Continues Telemetry Heart Rate 86 Telemetry SPO2 EKG WA Interval 0.22 H EKG QRS Interval 0.08 Telemetry Strip Reading SR with 1st degree AVB 08/07/24 08:00 08/07/24 09:00 08/07/24 10:00 Temperature Temperature Source Pulse Rate Respiratory Rate 21 H Blood Pressure Blood Pressure Mean Blood Pressure Left Arm Blood Pressure Location Blood Pressure Position O2 Sat by Pulse Oximetry 98 Oxygen Delivery Method Nasal Cannula Nasal Cannula Nasal Cannula Oxygen Flow Rate 2 2 Height Weight Telemetry Type Telemetry Monitoring Telemetry Heart Rate Telemetry SPO2 EKG WA Interval EKG QRS Interval Telemetry Strip Reading 08/07/24 10:00 08/07/24 10:00 08/07/24 11:20 Temperature 96.9 F L 97.3 F L Temperature Source Temporal Artery Scan Pulse Rate 77 82 Respiratory Rate 23 H 24 H Blood Pressure 161/62 H 171/61 H Blood Pressure Mean 95 97 Blood Pressure Left Arm Blood Pressure Location Left Arm Left Arm Blood Pressure Position Sitting Sitting O2 Sat by Pulse Oximetry 98 98 Oxygen Delivery Method Nasal Cannula Nasal Cannula Nasal Cannula Oxygen Flow Rate 2.5 2.5 Height Weight Telemetry Type Telemetry Monitoring Telemetry Heart Rate Telemetry SPO2 EKG WA Interval EKG QRS Interval Telemetry Strip Reading Lab Results Lab Results: Lab Results: Last 24 Hours 08/07/24 08/06/24 08/06/24 05:27 11:30 11:28 WBC 5.52 RBC 4.95 Hgb 14.1 Hct 43.7 MCV 88.3 MCH 28.5 MCHC 32.3 RDW Coeff of Crystal 13.8 Plt Count 185 Immature Gran % (Auto) 0.4 Neut % (Auto) 70.2 Lymph % (Auto) 15.0 [place] % (Auto) 13.0 H Eos % (Auto) 0.9 Baso % (Auto) 0.5 Neut # (Auto) 3.9 Lymph # (Auto) 0.8 [place] # (Auto) 0.7 Eos # (Auto) 0.1 Baso # (Auto) 0.0 Immature Gran # (Auto) 0.0 PT 11.0 11.2 H INR 1.06 1.08 Sodium 132.9 L 134.0 L Potassium 4.10 3.90 Chloride 98.1 96.0 L Carbon Dioxide 25.3 30.0 Anion Gap 13.60 11.90 BUN 19.6 H 22.0 H Creatinine 1.03 1.40 H Estimated GFR (MDRD) 52.00 36.00 BUN/Creatinine Ratio 19.02 15.71 Glucose 130.5 H 112.0 H Lactic Acid 1.60 Calcium 9.03 9.40 Total Bilirubin 0.47 0.70 AST 92.7 H 83.0 H ALT 50.4 H 49.0 H Alkaline Phosphatase 75.3 87.0 Total Protein 9.14 H 8.80 H Albumin 4.39 4.40 Globulin 4.75 4.40 Albumin/Globulin Ratio 0.92 1.00 Influ A Molecular Assay Negative by naat Influ B Molecular Assay Negative by naat RSV Antigen Negative by naat SARS CoV-2 RNA Rapid ALEXANDRU Positive H Additional Comments Additional Comments: I have independently reviewed and interpreted the labs/EKGs/imaging ordered during this hospital stay. I have reviewed outside records that are available in our EMR that pertain to medical stay including imaging/notes/labs from previous visits. Active Medications Active Medications: Medications Generic Name Dose Route Start Last Admin Trade Name Freq PRN Reason Stop Dose Admin Acetaminophen 650 mg 08/06/24 12:33 Acetaminophen 325 Mg Tablet PO Q4H PRN Mild Pain Albuterol Sulfate 2 puff 08/06/24 15:05 Albuterol Sulfate 8 Gm Inhaler IH Q4H PRN sob Amlodipine Besylate 5 mg 08/06/24 21:00 08/07/24 09:06 Amlodipine Besylate 5 Mg Tablet PO 5 mg BID SAKINA Administration Atorvastatin Calcium 40 mg 08/06/24 21:00 08/06/24 20:23 Atorvastatin Calcium 20 Mg Tablet PO 40 mg BEDTIME SAKINA Administration Benzonatate 100 mg 08/06/24 14:38 Benzonatate 100 Mg Capsule PO TID PRN Cough Clopidogrel Bisulfate 75 mg 08/07/24 09:00 08/07/24 09:05 Clopidogrel Bisulfate 75 Mg Tablet PO 75 mg DAILY SAKINA Administration Enoxaparin Sodium 40 mg 08/07/24 09:00 08/07/24 09:06 Enoxaparin Sodium 40 Mg/0.4 Ml Syr SUBCUT 40 mg DAILY SAKINA Administration Furosemide 20 mg 08/07/24 06:00 08/07/24 05:14 Furosemide 20 Mg Tablet PO 20 mg QDAC2 SAKINA Administration Guaifenesin/Dextromethorphan 5 ml 08/06/24 14:38 08/06/24 20:46 Guaifenesin/Dextromethorphan 200/20 Mg/10 Ml Cup PO 5 ml Q4H PRN Administration Cough Remdesivir 100 mg/ Sodium 100 mls @ 200 mls/hr 08/07/24 12:00 Chloride IV 08/07/24 12:29 ONCE ONE Remdesivir 100 mg/ Sodium 100 mls @ 200 mls/hr 08/08/24 12:00 Chloride IV 08/08/24 12:29 ONCE ONE Isosorbide Mononitrate 60 mg 08/07/24 09:00 08/07/24 09:06 Isosorbide Mononitrate 30 Mg Tab.Er.24h PO 60 mg DAILY SAKINA Administration Levothyroxine Sodium 88 mcg 08/07/24 06:00 08/07/24 05:14 Levothyroxine Sodium 88 Mcg Tablet PO 88 mcg QDAC2 SAKINA Administration Lisinopril 5 mg 08/07/24 21:00 Lisinopril 5 Mg Tablet PO DAILY SAKINA Lorazepam 1 mg 08/06/24 21:00 08/06/24 20:23 Lorazepam 1 Mg Tablet PO 1 mg BEDTIME SAKINA Administration Metoprolol Succinate 50 mg 08/06/24 21:00 08/07/24 09:06 Metoprolol Succinate 50 Mg Tab.Er.24h PO 50 mg BID SAKINA Administration Ondansetron HCl 4 mg 08/06/24 12:33 Ondansetron Hcl/Pf 4 Mg/2 Ml Sdv IVP Q6H PRN Nausea / Vomiting Phenol/Menthol 1 spray 08/06/24 19:19 08/06/24 20:23 Phenol 1 Marissa Btl MM 1 spray Q2H PRN Administration SORE THROAT Potassium Chloride 10 meq 08/07/24 07:30 08/07/24 09:06 Potassium Chloride 10 Meq Capsule.Er PO 10 meq DAILYWM2 SAKINA Administration Ranolazine 500 mg 08/06/24 21:00 08/07/24 09:08 Ranolazine 500 Mg Tab.Er.12h PO 500 mg 2XD SAKINA Administration Plan Plan: 1. Acute metabolic encephalopathy in setting of covid 19 - Check UA and ABG. If normal will get a CT head to r/o CVA, although less likely given no focal deficits. 2. Covid 19 - Discussed remdesivir IV x3, family agreeable. 3. Weakness - ptot consult 4. Hypertension - Cont home meds 5. Hyperlipidemia - Cont home meds 6. CAD - Cont home meds 7. Hypothyroidism - Cont home meds DVT Prophylaxis: Lovenox Review Statement Review Statement: I have personally discussed and reviewed the patient's visit/currently labs/imaging/decision making with Dr. Webb, my supervising attending. Greater that 50 minutes spent with patient, 50% of the time spent with this patient was devoted to counseling and coordination of care.
[2024-08-07] MEDS: VEKLURY 100 MG in SODIUM CHLORIDE 100ML 100 ML IV ONE (12:04)
[2024-08-07 12:11] LABS: BILIRUBIN,URINE Negative (NEGATIVE); CLARITY,URINE Clear (CLEAR); COLOR,URINE Yellow (YELLOW); GLUCOSE, URINE (UA) Negative (NEGATIVE); KETONES,URINE Negative (NEGATIVE); LEUKOCYTE ESTERASE ,URINE Negative (NEGATIVE); NITRITE,URINE Negative (NEGATIVE); PH,URINE 5.5 (5-9); PROTEIN,URINE Trace (NEGATIVE); URINE, BLOOD Negative (NEGATIVE); UROBILINOGEN,URINE 0.2 (0.2)
[2024-08-07 12:14] LABS: HYALINE CASTS, URINE 0-2 (NOT PRESENT); SQUAMOUS EPITHELIAL CELL,UR 0-2 (0-5)
[2024-08-07 13:24] LABS: ABG O2 HGB 94.7 % (95-100); ABG PH 7.46 (7.35-7.45); BEecf 3.9 (-2.0-3.0); COHb 2.2 (0.5-1.5); HCO3 27.7 (21-28); MetHb 1.9 (0-1.5); TCO2 28.9 (19-24); sO2 98.3 % (94-98); tHb 14.7 g/dl (11.7-17.4)
--- NOTE | 2024-08-07 14:54 | CT ---
EXAM: CT HEAD WITHOUT CONTRAST HISTORY: Altered mental status COMPARISON: None TECHNIQUE: Serial axial images of the brain were obtained from the skull base to the vertex without IV contrast. FINDINGS: The ventricles, cisterns and sulci demonstrate generalized volume loss. The kearns-white ma tter junction is maintained. There is scattered low attenuation in the periventricular white matter. No midline shift or mass is identified. There is no abnormal intra or extra-axial fluid collection. The paranasal sinuses demonstrate scattered mucosal thickening. The mastoid air cells are clear. T he osseous calvarium is intact. IMPRESSION: 1. No acute intracranial. 2. Generalized volume loss and scattered microangiopathy. All CT scans are performed using dose optimization techniques as appropriate to the performed exam an d include at least one of the following: Automated exposure control, adjustment of the mA and/or kV according t o size, and the use of iterative reconstruction technique.
--- NOTE | 2024-08-07 16:25 | RS.BEDDYS ---
Subjective Date of Evaluation: 08/07/24 Date of Onset/Injury/Change in Status: 08/07/24 Diagnosis: COVID Prior Level of Function.....Patient was independent with: ADL's, Self Care, Caregiving and Ambulation/Mobility Current Level of Function: Patient is currently in isolation getting treatment for COVID. Current Diet: regular Current Subjective/complaints:: Patient was reported to have difficulty with regular meal. She has a persistent productive cough and orders were given for bedside swallow exam to determine the best PO diet. Food Presentation Solids Food Presented: Regular Behaviors/Comments: Patient had difficulty with oral manipulation and persistent coughing making consistency difficult to swallow. Food Presented: Mechanical Soft Behaviors/Comments: She was given mixed fruit in juice. She stated that the acidity from the juice hurt her throat. Food Presented: Pureed Behaviors/Comments: Tolerated pudding consistency with no difficulty. Patient stated that the smooth consistency was easier on her throat. Liquids Liquid Presented: Thin Behaviors/Comments: patient did not have difficulty with thin liquids when taking small drinks at a time. Recommendations: Dysphagia Evaluation Dietary Recommendations: Puree and Thin Dysphagia Swallow Precautions/Strategies: Sitting Upright (90 deg) and Small Bites and Sips Comments:: Patient is to be completely alert and awake Summary Dysphagia Evaluation Summary: Patient seen bedside to assess swallow and safe PO diet. She presented with a persistent, productive cough and stated that she had trouble eating her lunch. She was given a variety of consistencies and discussed the safety of her eating while she was recovering in the hospital. She agreed to try the puree consistency until she was able to swallow more regular textures. COASTAL AND ESTUARY SPECIALIST to follow to assess safety of diet and upgrade as able. Further Therapy Indicated?: Yes Rehab Potential: Good Short Term Goals Goal #1: Tolerate puree diet without s/s of aspiration. Goal to be met by: 08/14/24 Goal #2: Tolerate mechanical soft diet without s/s of aspiration. Goal to be met by: 08/14/24 Goal #3: Tolerate regular diet without s/s of aspiration. Goal to be met by: 08/14/24 Occupational Therapy Technician Goals Goal #1: Tolerate least restrictive PO diet to maintain adequate nutrition/hydration Goal to be met by: 08/14/24 Plan Duration of Treatment: 1 Week Frequency of Treatment: 1-2 X day, as tolerated Treatment Code (1) Dysphagia: Code(s): R13.10 - Dysphagia, unspecified
[2024-08-07] MEDS: ZESTRIL PO SCH (21:23)
[2024-08-08 06:09] LABS: BASOPHILS % (AUTO) 0.3 % (0.0-3.0); EOSINOPHILS # (AUTO) 0.1 K/ul (0.0-0.7); EOSINOPHILS % (AUTO) 0.8 % (0.0-7.0); HEMATOCRIT 41.7 % (37.0-47.0); HEMOGLOBIN 13.8 g/dl (12.0-16.0); IMMATURE GRANULOCYTE % (AUTO) 0.3 % (0.0-5.0); LYMPHOCYTES # (AUTO) 0.6 K/uL (0.60-3.4); LYMPHOCYTES % (AUTO) 9.7 (10.0-50.0); MEAN CORPUSCULAR HEMOGLOBIN 29.1 pg (27.0-31.0); MEAN CORPUSCULAR HGB CONC 33.1 (31.8-35.4); MEAN CORPUSCULAR VOLUME 87.8 fl (81.0-99.0); MONOCYTES # (AUTO) 0.8 K/uL (0.4-2.0); MONOCYTES % (AUTO) 11.8 (0-10); NEUTROPHILS # (AUTO) 4.9 K/ul (2.0-6.9); NEUTROPHILS % (AUTO) 77.1 % (42.2-75.2); PLATELET COUNT 177 10^3/uL (140-440); RDW COEFFICIENT OF VARIATION 13.7 % (11.6-14.8); RED BLOOD COUNT 4.75 10^6/ul (4.20-5.40); WHITE BLOOD COUNT 6.38 K/ul (4.6-10.2)
[2024-08-08 06:24] LABS: ALANINE AMINOTRANSFERASE 47.6 U/L (0-35); ALBUMIN 4.07 g/dL (3.5-5.0); ALKALINE PHOSPHATASE 66.9 U/L (53-141); ASPARTATE AMINO TRANSFERASE 82.1 U/L (14-36); BILIRUBIN,TOTAL 0.55 mg/dL (0.2-1.3); BLOOD UREA NITROGEN 28.4 mg/dL (7-17); CARBON DIOXIDE 25.4 mmol/L (22-30.0); CHLORIDE 96.7 mmol/L (98-107); CREATININE 1.23 mg/dL (0.60-1.30); GLUCOSE 137.6 mg/dL (74-106); POTASSIUM 3.7 mmol/L (3.5-5.1); TOTAL PROTEIN 8.48 g/dL (6.3-8.2)
[2024-08-08 06:26] LABS: PROTHROMBIN TIME 11.6 SEC (9.3-11.0)
[2024-08-08] MEDS: VEKLURY 100 MG in SODIUM CHLORIDE 100ML 100 ML IV ONE (11:21)
--- NOTE | 2024-08-08 11:35 | RS.PTINEVL ---
Subjective Patient information Date of Evaluation: 08/08/24 Date of Arrival on Unit: 08/06/24 Admitted From:: Home Diagnosis: COVID, weakness, impaired mobility Usual Living Arrangement: Alone Home Environment: House, Stairs (few) and Rail Medical History: Hypertension and Arthritis Medical History Comments:: PA, CAD, Thyroid disease, acute metabolic encep halopathy LATEX ALLERGY?: No Surgical History Comments:: pacemaker, appey Medications: see chart Subjective Information/ Patient Comments:: pt states that she feels terrible and that she feels "drunk". 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 Range of Motion ROM Right Upper Extremity AROM: WFL's (limited R shoulder AROM) Left Upper Extremity AROM: WFL's Right Lower Extremity AROM: WFL's Left Lower Extremity AROM: WFL's Muscle Strength Muscle Strength Right Upper Extremity: Mild Weakness (grossly 4- to 4/5) Left Upper Extremity: Mild Weakness (grossly 4- to 4/5) Right Lower Extremity: Mild Weakness (hip flex 3+/5, knee ext 4/5, flex 4-/5, ankle 4-/5) Left Lower Extremity: Mild Weakness (hip flex 3+/5, knee ext 4/5, flex 4-/5, ankle 4-/5) Sensation Sensation Right Upper Extremity: Intact/Normal Left Upper Extremity: Intact/Normal Right Lower Extremity: Intact/Normal Left Lower Extremity: Intact/Normal Palpation Palpation Findings: None/Normal Balance Sitting Balance and Reactions Static Sitting Balance: Poor (leans to R) Dynamic Sitting Balance: Poor Sitting Equilibrium Reactions: Delayed Left and Delayed Right Sitting Protective Reactions: Delayed Left and Delayed Right Standing Balance and Reactions Static Standing Balance: Poor Dynamic Standing Balance: Poor Standing Equilibrium Reactions: Delayed Left and Delayed Right Standing Protective Reactions: Delayed Left and Delayed Right Functional Mobility Bed Mobility Rolling R/L: Mod Assist and 1 person assist Scooting: Mod Assist and 1 person assist (to edge of bed ) Supine to Sit: Mod Assist and 1 person assist Transfers Sit to Stand: Min Assist and 2 person assist Stand to Sit: Min Assist and 2 person assist Safety Awareness Safety Awareness: Poor DANISH INDEX SCORE: n/a Ambulation Ambulation Assistive Device Used: Rolling Walker Orthotic/Prosthetic Device: No Distance: 5-6 steps Assistance needed with Ambulation: Min Assist and 2 person assist Gait Deviations: Forward posture, Short stride and Deviates from path Factors Affecting Ambulation: Decreased Balance, Weakness, Decreased Coordination, Decreased Safety, Cognitive Status and Limited Endurance Treatment time Units charged ADL: 1 (TA) Time with patient Length of Evaluation: 19 Total treatment time: 29 Patient Education Education Patient Education: Activity Modification and Education of Plan of Care Teaching Recipient: Patient Teaching Methods: Discussion (discussion regarding POC) Assessment Assessment Problem List:: Decreased level of function, Requires training/education, Decreased safety/Risk of falls, Weakness and Cognitive status limits abilities Rehab Potential: Fair Further Therapy Indicated?: Yes Candidate for Swing Bed for Therapy Services?: Feel pt may be a candidate for swing bed for therapy if pt cognitive status continues to improve. Evaluation Complexity: HISTORY: Medium, EXAM OF BODY SYSTEMS: Medium, CLINICAL PRESENTATION: Medium and CLINICAL DECISION MAKING: Medium Patient's Goal(s): Go back home Short Term Goals GOAL #1: pt independent with rolling and scooting to edge of bed. Goal to be met by: 08/11/24 GOAL #2: Transfer sup to/from sit min x 1 Goal to be met by: 08/11/24 GOAL #3: Transfer sit to/from stand min x 1 Goal to be met by: 08/11/24 GOAL #4: pt amb 25ft with rwx with min x 1 Goal to be met by: 08/11/24 GOAL #5: Improve BLE strength 4 to 4+/5 Goal to be met by: 08/11/[address] Goals GOAL #1: pt transfer sup to/from sit to/from stand CGA to SBA Goal to be met by: 08/13/24 GOAL #2: pt amb functional distance with rwx with CGA x 1 Goal to be met by: 08/13/24 GOAL #3: Ascend/descend 2-3 steps with HR with CGA x 1 Goal to be met by: 08/13/24 Plan Plan of Care: Therapeutic EX, Neuromuscular Re-Educ, Therapeutic Activity and Self-Care/Home Management Other:: gait training Frequency of Treatment: 1-2 X day, as tolerated Duration of Treatment: 5 days Anticipated Discharge Destination: undetermined Treatment Diagnosis (ICD 10 Codes): impaired balance R 26.81 gait difficulty R 26.2 weakness M62.81 COVID Has the Physician been added for Co-signature?: Yes
--- NOTE | 2024-08-08 12:00 | RS.OTINEVL ---
Subjective Patient information Date of Evaluation: 08/08/24 Date of Arrival on Unit: 08/06/24 Admitted From:: Home Diagnosis: Covid, Need for assistance with personal care, weakness PRECAUTIONS: Pt walks in flexed position and mental state is improving. Usual Living Arrangement: Alone Living Arrangement Comments: Pt has a puppy and lives alone. Pt drives. 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 Current Level of Function: Partially Dependent Comments: Pt is min A to stand, and min A to get to EOB and sit. Pt has slight or min limitations of the BUE. Strength is 3-/5. Current Equipment Used at Home: Walker, Cane, bed side commode, shower chair Interventions Objective Patient Orientation: Person and Situation Current Interventions: IV's and Oxygen Observation: Pt was more alert at times today. Pt BUE strength in shoulders is 3-/5. Pt reported LUE hurts her at times. Pt did brush her hair using BUE. Supine to sit Mod x 1. Sit to stand min x2. Sitting EOB, pt leaned to the Right for a few minutes. Pt stepped with small steps and in flexed posture. Interventions ROM Right Upper Extremity AROM: Slight limitation Left Upper Extremity AROM: Slight limitation Comments: BUE 3-/5. Pt does not have full AROM of shoulders. Strength Right Upper Extremity: Mild Weakness Left Upper Extremity: Mild Weakness Sensation Right Upper Extremity: Intact/Normal Left Upper Extremity: Intact/Normal Balance Sitting Balance Static Sitting Balance: Poor Dynamic Sitting Balance: Poor Standing Balance Static Standing Balance: Poor Dynamic Standing Balance: Poor ADL Skills Grooming Grooming: Min Assist Grooming Set-up: Sitting Comments:: Pt still has a hard time staying awake. Bathing Bathing UE: Mod Assist Bathing LE: Mod Assist, Max Assist and Verbal Cues Bathing Set-up: Bedside (Hopefully in a couple of days she will improve to a shower.) Dressing Dressing UE: Mod Assist Dressing LE: Max Assist and Verbal Cues Toilet Management Toilet Hygiene: Max Assist (Cannot stand with RW and complete personal hygiene.) Toilet Clothing Management: Max Assist (Pt cannot get brief over her feet independently. ) Functional Mobility Bed Mobility Rolling R/L: Mod Assist, Verbal Cues and Tactile Cues Scooting: Mod Assist Supine to Sit: Mod Assist Transfers Sit to Stand: Min Assist and 2 person assist Stand to Sit: Min Assist and 2 person assist Stand Pivot Transfers: Min Assist and 2 person assist Ambulation Weight Bearing Status: FWB Assistive Device Used: Rolling Walker Assistance needed with Ambulation: Min Assist and 2 person assist Safety Awareness Safety Awareness: Fair DANISH INDEX SCORE: . Additional Treatment Performed Time with patient Length of Evaluation: 17 Total treatment time: 17 Activities Do you enjoy playing games?: Yes Would you be interested in leaving your room for activities?: Yes Would you enjoy group activities?: Yes Do you have difficulty with your vision?: Yes Patient Interests:: Watching Television and Visiting/Socializing Patient Education Patient Education: Education of diagnosis, Home Exercise Program and Education of Plan of Care Teaching Recipient: Patient Teaching Methods: Discussion and Demonstration Assessment Problem List:: Decreased level of function, Requires training/education, Decreased safety/Risk of falls and Weakness Rehab Potential: Fair Further Therapy Indicated?: Yes Evaluation Complexity: HISTORY: Medium, EXAM OF BODY SYSTEMS: Medium and CLINICAL DECISION MAKING: Medium Patient's Goal(s): To be able to take care of herself and return home. Short Term Goals Goals GOAL 1: Pt to be CGA with standing at sink and brushing her teeth. Goal to be met by: 08/11/24 GOAL 2: Pt to be min A with UB dressing. Goal to be met by: 08/11/24 GOAL 3: Pt to be CGA with toilet transfers. Goal to be met by: 08/11/24 GOAL 4: Pt to increase dyn. std. bal. to Fair. Goal to be met by: 08/11/24 GOAL 5: Pt to be Independent with donning and doffing her brief. Goal to be met by: 08/11/24 GOAL 6: Pt to increase BUE strength to 4/5. Goal to be met by: 08/13/24 Care Home Goals GOAL 1: Pt to be Independent with ADLs. Goal to be met by: 08/13/24 GOAL 2: Pt to increase dyn. std. balance to Good-. Goal to be met by: 08/13/24 GOAL 3: Pt to increase BUE strength to 4+/5. Goal to be met by: 08/13/24 Plan Plan of Care: Therapeutic EX, Therapeutic Activity and Self-Care/Home Management Frequency of Treatment: 1-2 X day, as tolerated Duration of Treatment: 1 Week Anticipated Discharge Destination: Home Treatment Diagnosis (ICD 10 Codes): Z74.1 Need assistance with personal care, R53.1 Weakness, R26.81 Imp. bal. Has the Physician been added for Co-signature?: Yes
--- NOTE | 2024-08-08 12:27 | PCM.PROG ---
Date/Time Seen Date Seen by Provider: 08/08/24 Time Seen by Provider: 08:30 Provider Provider: ABD[facility]ERR[facility] Chief Complaint Chief Complaint: COVID POSITIVE Subjective Subjective: Patient was lethargic most of the day yesterday. Unable to participate with therapy. Today she answers questions appropriately and follows basic commands but keeps eyes closed. Denies any specific complaints. Has a weak cough, unable to get much up. Yesterday ct head w/o neg, UA neg, ABG unremarkable. Objective Appearance: Positive No Apparent Distress and Other (+oriented x3, lethargic ) Chest/Lungs: Positive Clear to Auscultation Bilaterally; Negative Rales, Rhonci or Wheezes Heart: Positive RRR GI/: Positive Soft, Nontender, Bowel Sounds Normal and No Distention Neurological: Positive Cranial Nerves Intact and Oriented; Negative Alert (+lethargic) or Muscle Strength 5/5 in Upper and Lower Extremities Bilaterally (+generalized weakness, no focal deficits ) Vital Signs Vital Signs: Vital Signs: Last 24 Hours 08/07/24 13:00 08/07/24 14:00 08/07/24 14:00 Temperature 97.6 F Temperature Source Temporal Artery Scan Pulse Rate 77 Respiratory Rate 19 Blood Pressure 177/67 H Blood Pressure Mean 103 Blood Pressure Location Left Arm Blood Pressure Position Supine O2 Sat by Pulse Oximetry 96 Oxygen Delivery Method Nasal Cannula Room Air Oxygen Flow Rate 2 Telemetry Type Bedside Monitor Telemetry Monitoring Telemetry Heart Rate 90 Telemetry SPO2 99 EKG GA Interval 0.22 H EKG QRS Interval 0.07 Telemetry Strip Reading SR with 1st degree AV Block 08/07/24 18:00 08/07/24 19:00 08/07/24 20:00 Temperature 97.7 F Temperature Source Temporal Artery Scan Pulse Rate 80 Respiratory Rate 22 H Blood Pressure 138/57 L Blood Pressure Mean 84 Blood Pressure Location Right Arm Blood Pressure Position Supine O2 Sat by Pulse Oximetry 94 L 95 Oxygen Delivery Method Room Air Nasal Cannula Oxygen Flow Rate 1 Telemetry Type Bedside Monitor Telemetry Monitoring Continues Telemetry Heart Rate 78 Telemetry SPO2 EKG GA Interval 0.22 H EKG QRS Interval 0.08 Telemetry Strip Reading SR WITH 1ST DEGREE AVB 08/07/24 20:00 08/07/24 21:02 08/08/24 01:00 Temperature 97.8 F Temperature Source Temporal Artery Scan Pulse Rate 75 Respiratory Rate 20 Blood Pressure 155/78 H Blood Pressure Mean 103 Blood Pressure Location Right Arm Blood Pressure Position Supine O2 Sat by Pulse Oximetry 95 Oxygen Delivery Method Nasal Cannula Nasal Cannula Oxygen Flow Rate 1 1 Telemetry Type Bedside Monitor Telemetry Monitoring Continues Telemetry Heart Rate 70 Telemetry SPO2 EKG GA Interval 0.22 H EKG QRS Interval 0.07 Telemetry Strip Reading SR WITH 1ST DEGREE AVB 08/08/24 02:00 08/08/24 05:07 08/08/24 05:20 Temperature 97.1 F L Temperature Source Temporal Artery Scan Pulse Rate 68 70 Respiratory Rate 20 18 Blood Pressure 133/52 L 150/63 H Blood Pressure Mean 79 92 Blood Pressure Location Right Arm Left Arm Blood Pressure Position Supine O2 Sat by Pulse Oximetry 96 94 L 94 L Oxygen Delivery Method Nasal Cannula Nasal Cannula Nasal Cannula Oxygen Flow Rate 1 1 2 Telemetry Type Telemetry Monitoring Telemetry Heart Rate Telemetry SPO2 EKG GA Interval EKG QRS Interval Telemetry Strip Reading 08/08/24 07:00 08/08/24 10:00 Temperature 98.4 F Temperature Source Temporal Artery Scan Pulse Rate 68 Respiratory Rate 19 Blood Pressure 127/59 L Blood Pressure Mean 81 Blood Pressure Location Left Arm Blood Pressure Position O2 Sat by Pulse Oximetry 95 Oxygen Delivery Method Nasal Cannula Oxygen Flow Rate 2 Telemetry Type Remote Telemetry Telemetry Monitoring Continues Telemetry Heart Rate 69 Telemetry SPO2 EKG GA Interval 0.20 EKG QRS Interval 0.09 Telemetry Strip Reading NSR Lab Results Lab Results: Lab Results: Last 24 Hours 08/08/24 08/07/24 06:06 13:19 WBC 6.38 RBC 4.75 Hgb 13.8 Hct 41.7 MCV 87.8 MCH 29.1 MCHC 33.1 RDW Coeff of Crystal 13.7 Plt Count 177 Immature Gran % (Auto) 0.3 Neut % (Auto) 77.1 H Lymph % (Auto) 9.7 L [place] % (Auto) 11.8 H Eos % (Auto) 0.8 Baso % (Auto) 0.3 Neut # (Auto) 4.9 Lymph # (Auto) 0.6 [place] # (Auto) 0.8 Eos # (Auto) 0.1 Baso # (Auto) 0.0 Immature Gran # (Auto) 0.0 PT 11.6 H INR 1.13 Puncture Site [employer] Excess 3.9 H O2 Saturation 98.3 H ABG pH 7.46 H ABG pCO2 39.0 ABG pO2 104.0 H ABG HCO3 27.7 ABG Total CO2 28.9 H Eugene Test + Hemoglobin 1.9 H Oxyhemoglobin 94.7 L Carboxyhemoglobin 2.2 H Total Hemoglobin 14.7 O2 Delivery Device Cannula Oxygen Liter Flow 2.00 FiO2 % 28.0 Sodium 132.0 L Potassium 3.70 Chloride 96.7 L Carbon Dioxide 25.4 Anion Gap 13.60 BUN 28.4 H Creatinine 1.23 Estimated GFR (MDRD) 42.00 BUN/Creatinine Ratio 23.08 Glucose 137.6 H Calcium 9.00 Total Bilirubin 0.55 AST 82.1 H ALT 47.6 H Alkaline Phosphatase 66.9 Total Protein 8.48 H Albumin 4.07 Globulin 4.41 Albumin/Globulin Ratio 0.92 Additional Comments Additional Comments: I have independently reviewed and interpreted the labs/EKGs/imaging ordered during this hospital stay. I have reviewed outside records that are available in our EMR that pertain to medical stay including imaging/notes/labs from previous visits. Active Medications Active Medications: Medications Generic Name Dose Route Start Last Admin Trade Name Freq PRN Reason Stop Dose Admin Acetaminophen 650 mg 08/06/24 12:33 Acetaminophen 325 Mg Tablet PO Q4H PRN Mild Pain Albuterol Sulfate 2 puff 08/06/24 15:05 Albuterol Sulfate 8 Gm Inhaler IH Q4H PRN sob Amlodipine Besylate 5 mg 08/06/24 21:00 08/08/24 09:24 Amlodipine Besylate 5 Mg Tablet PO 5 mg BID SAKINA Administration Atorvastatin Calcium 40 mg 08/06/24 21:00 08/07/24 21:23 Atorvastatin Calcium 20 Mg Tablet PO 40 mg BEDTIME SAKINA Administration Benzonatate 100 mg 08/06/24 14:38 Benzonatate 100 Mg Capsule PO TID PRN Cough Clopidogrel Bisulfate 75 mg 08/07/24 09:00 08/08/24 09:23 Clopidogrel Bisulfate 75 Mg Tablet PO 75 mg DAILY SAKINA Administration Enoxaparin Sodium 40 mg 08/07/24 09:00 08/08/24 09:24 Enoxaparin Sodium 40 Mg/0.4 Ml Syr SUBCUT 40 mg DAILY SAKINA Administration Furosemide 20 mg 08/07/24 06:00 08/08/24 05:35 Furosemide 20 Mg Tablet PO 20 mg QDAC2 SAKINA Administration Guaifenesin/Dextromethorphan 5 ml 08/06/24 14:38 08/06/24 20:46 Guaifenesin/Dextromethorphan 200/20 Mg/10 Ml Cup PO 5 ml Q4H PRN Administration Cough Remdesivir 100 mg/ Sodium 100 mls @ 200 mls/hr 08/08/24 12:00 08/08/24 11:21 Chloride IV 08/08/24 12:29 200 mls/hr ONCE ONE Administration Isosorbide Mononitrate 60 mg 08/07/24 09:00 08/08/24 09:24 Isosorbide Mononitrate 30 Mg Tab.Er.24h PO 60 mg DAILY SAKINA Administration Levothyroxine Sodium 88 mcg 08/07/24 06:00 08/08/24 05:35 Levothyroxine Sodium 88 Mcg Tablet PO 88 mcg QDAC2 SAKINA Administration Lisinopril 5 mg 08/07/24 21:00 08/08/24 09:24 Lisinopril 5 Mg Tablet PO 5 mg DAILY SAKINA Administration Lorazepam 1 mg 08/06/24 21:00 08/07/24 21:23 Lorazepam 1 Mg Tablet PO 1 mg BEDTIME SAKINA Administration Metoprolol Succinate 50 mg 08/06/24 21:00 08/08/24 09:24 Metoprolol Succinate 50 Mg Tab.Er.24h PO 50 mg BID SAKINA Administration Ondansetron HCl 4 mg 08/06/24 12:33 Ondansetron Hcl/Pf 4 Mg/2 Ml Sdv IVP Q6H PRN Nausea / Vomiting Phenol/Menthol 1 spray 08/06/24 19:19 08/06/24 20:23 Phenol 1 [place] Btl MM 1 spray Q2H PRN Administration SORE THROAT Potassium Chloride 10 meq 08/07/24 07:30 08/08/24 07:49 Potassium Chloride 10 Meq Capsule.Er PO 10 meq DAILYWM2 SAKINA Administration Ranolazine 500 mg 08/06/24 21:00 08/08/24 09:24 Ranolazine 500 Mg Tab.Er.12h PO 500 mg 2XD SAKINA Administration Sodium Chloride 1 syr 08/08/24 05:35 08/08/24 05:36 0.9% Sodium Chloride 10 Ml Disp.Syrin IVF 1 syr Q8HR SAKINA Administration Assessment (1) Dysphagia: Status: Acute Code(s): R13.10 - Dysphagia, unspecified SNOMED Code(s): 00805079 Plan Plan: 1. Acute metabolic encephalopathy in setting of covid 19 - UA, ABG, and ct head w/o unremarkable. Seems improved today, did better with therapy. 2. Covid 19 - Discussed remdesivir IV x3, family agreeable. Last dose today. Pt has been on and off oxygen but after speaking with nursing she has not been truly hypoxic. Was placed on O2 due to O2 sat of 91% last night. Will not start decadron at this time. 3. Weakness - ptot consult 4. Hypertension - Cont home meds 5. Hyperlipidemia - Cont home meds 6. CAD - Cont home meds 7. Hypothyroidism - Cont home meds DVT Prophylaxis: Lovenox Dispo: Will consider swingbed if patient is able to participate with therapy and continues to improve. Review Statement Review Statement: I have personally discussed and reviewed the patient's visit/currently labs/imaging/decision making with Dr. Webb, my supervising attending. Greater that 50 minutes spent with patient, 50% of the time spent with this patient was devoted to counseling and coordination of care.
--- NOTE | 2024-08-08 14:12 | RS.DYSPHTX ---
Dysphagia Treatment Note Date of Note: 08/08/24 Time of Treatment: 08:10 Subjective: Patient was alert and eating breakfast with assistance. Total treatment time: 30 Short Term Goals Goal #1: Tolerate puree diet without s/s of aspiration. Activity/Accuracy: pt observed to tolerate diet well for breakfast. Goal #2: Tolerate mechanical soft diet without s/s of aspiration. Activity/Accuracy: na Goal #3: Tolerate regular diet without s/s of aspiration. Activity/Accuracy: na Snf Goals Goal #1: Tolerate least restrictive PO diet to maintain adequate nutrition/hydration Assessment: No reports of difficulty reported from nursing regarding current diet. Continue to follow. Units Charged Swallowing Therapy: 1
[2024-08-08] MEDS: DECADRON PO SCH (16:43)
[2024-08-09 06:28] LABS: BASOPHILS % (AUTO) 0.3 % (0.0-3.0); EOSINOPHILS % (AUTO) 0.6 % (0.0-7.0); HEMATOCRIT 46.1 % (37.0-47.0); HEMOGLOBIN 14.3 g/dl (12.0-16.0); IMMATURE GRANULOCYTE % (AUTO) 0.3 % (0.0-5.0); LYMPHOCYTES # (AUTO) 0.5 K/uL (0.60-3.4); LYMPHOCYTES % (AUTO) 15.2 (10.0-50.0); MEAN CORPUSCULAR HEMOGLOBIN 28.4 pg (27.0-31.0); MEAN CORPUSCULAR VOLUME 91.7 fl (81.0-99.0); MONOCYTES # (AUTO) 0.2 K/uL (0.4-2.0); NEUTROPHILS # (AUTO) 2.6 K/ul (2.0-6.9); NEUTROPHILS % (AUTO) 77.6 % (42.2-75.2); PLATELET COUNT 182 10^3/uL (140-440); RDW COEFFICIENT OF VARIATION 13.6 % (11.6-14.8); RED BLOOD COUNT 5.03 10^6/ul (4.20-5.40); WHITE BLOOD COUNT 3.35 K/ul (4.6-10.2)
[2024-08-09 06:42] LABS: ALANINE AMINOTRANSFERASE 38.9 U/L (0-35); ALBUMIN 3.91 g/dL (3.5-5.0); ALKALINE PHOSPHATASE 52.7 U/L (53-141); BILIRUBIN,TOTAL 0.57 mg/dL (0.2-1.3); BLOOD UREA NITROGEN 50.3 mg/dL (7-17); CALCIUM 8.81 mg/dL (8.4-10.2); CARBON DIOXIDE 21.9 mmol/L (22-30.0); CHLORIDE 96.4 mmol/L (98-107); CREATININE 1.67 mg/dL (0.60-1.30); POTASSIUM 4.41 mmol/L (3.5-5.1); SODIUM 130.1 mmol/L (134.5-145); TOTAL PROTEIN 8.01 g/dL (6.3-8.2)
[2024-08-09] MEDS: SODIUM CHLORIDE 1,000 ML IV SCH (09:11)
--- NOTE | 2024-08-09 09:47 | DI ---
EXAM: CHEST RADIOGRAPH TECHNIQUE: Single frontal chest radiograph. HISTORY: Hypoxia. COMPARISON: 08/06/2024 FINDINGS: The patient is mildly leaning to the right. Left subclavian cardiac device, grossly stable in positi on. EKG leads project over the chest. Calcified granulomas of the left mid to lower lung, again noted. No pulmonary infiltrate is identifi ed. No pleural effusion or pneumothorax is seen. Heart size is normal. Patient is status post coronary artery stenting. No acute displaced rib fractures are identified. IMPRESSION: 1. No acute findings in the chest.
--- NOTE | 2024-08-09 10:48 | RS.DYSPHTX ---
Dysphagia Treatment Note Date of Note: 08/09/24 Time of Treatment: 08:10 Subjective: Patient was seen for skilled speech therapy. She was alert and eating breakfast. Total treatment time: 20 Short Term Goals Goal #1: Tolerate puree diet without s/s of aspiration. Activity/Accuracy: no difficulty noted with puree diet Goal #2: Tolerate mechanical soft diet without s/s of aspiration. Activity/Accuracy: na Goal #3: Tolerate regular diet without s/s of aspiration. Activity/Accuracy: na Penitentiary Goals Goal #1: Tolerate least restrictive PO diet to maintain adequate nutrition/hydration Assessment: Patient is making steady progress towards her goals. She is more alert and feeling better. She is communicating better and following directions. Will try trial tray of mechanical soft for lunch. Units Charged Swallowing Therapy: 1
--- NOTE | 2024-08-09 10:53 | PCM.PROG ---
Date/Time Seen Date Seen by Provider: 08/09/24 Time Seen by Provider: 08:30 Provider Provider: ABDIEL SERRANO PA-C, [facility] Chief Complaint Chief Complaint: COVID POSITIVE Subjective Subjective: Patient had an event of hypoxia last night requiring suctioning and addition oxygen. Patient seemed to be having a lot of congestion, and oxygenation improved after suctioning. She was able to be weened back down to 3 liters and has had no other episodes through the night. This morning, patient is much more alert and oriented. She participated with therapy and reports feeling much better. Objective Appearance: Positive No Apparent Distress and Other (+oriented x3) Chest/Lungs: Positive Clear to Auscultation Bilaterally; Negative Rales, Rhonci or Wheezes Heart: Positive RRR GI/: Positive Soft, Nontender, Bowel Sounds Normal and No Distention Neurological: Positive Cranial Nerves Intact, Alert (+lethargic) and Oriented; Negative Muscle Strength 5/5 in Upper and Lower Extremities Bilaterally (+generalized weakness, no focal deficits ) Vital Signs Vital Signs: Vital Signs: Last 24 Hours 08/08/24 12:44 08/08/24 13:00 08/08/24 13:00 Temperature Temperature Source Pulse Rate 60 Respiratory Rate 18 Blood Pressure 104/42 L Blood Pressure Mean 62 Blood Pressure Location Left Arm Blood Pressure Position Sitting O2 Sat by Pulse Oximetry 91 L Oxygen Delivery Method Room Air Oxygen Flow Rate Height Weight Telemetry Type Remote Telemetry Remote Telemetry Telemetry Monitoring Continues Continues Telemetry Heart Rate 65 62 Telemetry SPO2 90 L EKG DE Interval 0.20 0.23 H EKG QRS Interval 0.08 0.07 Telemetry Strip Reading NSR SR with 1st Degree AVB 08/08/24 14:00 08/08/24 14:00 08/08/24 18:00 Temperature 97.6 F 97.6 F Temperature Source Temporal Artery Scan Temporal Artery Scan Pulse Rate 65 65 Respiratory Rate 16 18 Blood Pressure 104/39 L 106/65 Blood Pressure Mean 60 78 Blood Pressure Location Left Arm Right Arm Blood Pressure Position Sitting O2 Sat by Pulse Oximetry 91 L 91 L 95 Oxygen Delivery Method Room Air Nasal Cannula Nasal Cannula Oxygen Flow Rate 2 1 Height Weight Telemetry Type Telemetry Monitoring Telemetry Heart Rate Telemetry SPO2 EKG DE Interval EKG QRS Interval Telemetry Strip Reading 08/08/24 19:00 08/08/24 20:00 08/08/24 20:00 Temperature Temperature Source Pulse Rate Respiratory Rate Blood Pressure Blood Pressure Mean Blood Pressure Location Blood Pressure Position O2 Sat by Pulse Oximetry 94 L Oxygen Delivery Method Nasal Cannula Nasal Cannula Oxygen Flow Rate 0.5 1 Height Weight Telemetry Type Remote Telemetry Telemetry Monitoring Continues Telemetry Heart Rate 60 Telemetry SPO2 92 L EKG DE Interval 0.21 H EKG QRS Interval 0.09 Telemetry Strip Reading SR with 1st degree AVB 08/08/24 21:07 08/09/24 01:00 08/09/24 02:00 Temperature 97.3 F L 96.9 F L Temperature Source Temporal Artery Scan Temporal Artery Scan Pulse Rate 60 65 Respiratory Rate 13 16 Blood Pressure 128/51 L 140/42 L Blood Pressure Mean 76 74 Blood Pressure Location Right Arm Left Arm Blood Pressure Position Supine Sitting O2 Sat by Pulse Oximetry 94 L 92 L Oxygen Delivery Method Nasal Cannula Nasal Cannula Oxygen Flow Rate 1 3 Height Weight Telemetry Type Bedside Monitor Telemetry Monitoring Continues Telemetry Heart Rate 67 Telemetry SPO2 91 L EKG DE Interval 0.24 H EKG QRS Interval 0.11 H Telemetry Strip Reading SR W/ 1ST DEGREE AVB & BBB 08/09/24 05:17 08/09/24 05:55 08/09/24 07:00 Temperature 97.2 F L Temperature Source Temporal Artery Scan Pulse Rate 66 Respiratory Rate 17 Blood Pressure 124/50 L Blood Pressure Mean 74 Blood Pressure Location Left Arm Blood Pressure Position Supine O2 Sat by Pulse Oximetry 97 99 Oxygen Delivery Method Nasal Cannula Nasal Cannula Oxygen Flow Rate 2 Height Weight Telemetry Type Remote Telemetry Telemetry Monitoring Continues Telemetry Heart Rate 65 Telemetry SPO2 97 EKG DE Interval 0.20 EKG QRS Interval 0.06 Telemetry Strip Reading NSR 08/09/24 07:30 08/09/24 09:21 08/09/24 09:50 Temperature 97.2 F L Temperature Source Temporal Artery Scan Pulse Rate 64 Respiratory Rate 20 Blood Pressure 104/46 L Blood Pressure Mean 65 Blood Pressure Location Left Arm Blood Pressure Position Sitting O2 Sat by Pulse Oximetry 100 Oxygen Delivery Method Nasal Cannula Nasal Cannula Oxygen Flow Rate 2 1 Height 5 ft 6 in Weight 85.1 kg Telemetry Type Telemetry Monitoring Telemetry Heart Rate Telemetry SPO2 EKG DE Interval EKG QRS Interval Telemetry Strip Reading 08/09/24 10:00 Temperature Temperature Source Pulse Rate Respiratory Rate Blood Pressure Blood Pressure Mean Blood Pressure Location Blood Pressure Position O2 Sat by Pulse Oximetry 97 Oxygen Delivery Method Room Air Oxygen Flow Rate Height Weight Telemetry Type Telemetry Monitoring Telemetry Heart Rate Telemetry SPO2 EKG DE Interval EKG QRS Interval Telemetry Strip Reading Lab Results Lab Results: Lab Results: Last 24 Hours 08/09/24 08/08/24 06:24 06:04 WBC 3.35 L RBC 5.03 Hgb 14.3 Hct 46.1 MCV 91.7 MCH 28.4 MCHC 31.0 L RDW Coeff of Crystal 13.6 Plt Count 182 Immature Gran % (Auto) 0.3 Neut % (Auto) 77.6 H Lymph % (Auto) 15.2 [place] % (Auto) 6.0 Eos % (Auto) 0.6 Baso % (Auto) 0.3 Neut # (Auto) 2.6 Lymph # (Auto) 0.5 L [place] # (Auto) 0.2 L Eos # (Auto) 0.0 Baso # (Auto) 0.0 Immature Gran # (Auto) 0.0 Sodium 130.1 L Potassium 4.41 Chloride 96.4 L Carbon Dioxide 21.9 L Anion Gap 16.21 BUN 50.3 H Creatinine 1.67 H Estimated GFR (MDRD) 30.00 BUN/Creatinine Ratio 30.11 Glucose 178.0 H Calcium 8.81 Total Bilirubin 0.57 AST 65.0 H ALT 38.9 H Alkaline Phosphatase 52.7 L Total Protein 8.01 Albumin 3.91 Globulin 4.10 Albumin/Globulin Ratio 0.95 Procalcitonin 0.35 H TSH 1.210 Additional Comments Additional Comments: I have independently reviewed and interpreted the labs/EKGs/imaging ordered during this hospital stay. I have reviewed outside records that are available in our EMR that pertain to medical stay including imaging/notes/labs from previous visits. Active Medications Active Medications: Medications Generic Name Dose Route Start Last Admin Trade Name Freq PRN Reason Stop Dose Admin Acetaminophen 650 mg 08/06/24 12:33 Acetaminophen 325 Mg Tablet PO Q4H PRN Mild Pain Albuterol Sulfate 2 puff 08/06/24 15:05 Albuterol Sulfate 8 Gm Inhaler IH Q4H PRN sob Amlodipine Besylate 5 mg 08/06/24 21:00 08/08/24 09:24 Amlodipine Besylate 5 Mg Tablet PO 5 mg BID SAKINA Administration Atorvastatin Calcium 40 mg 08/06/24 21:00 08/08/24 20:02 Atorvastatin Calcium 20 Mg Tablet PO 40 mg BEDTIME SAKINA Administration Benzonatate 100 mg 08/06/24 14:38 Benzonatate 100 Mg Capsule PO TID PRN Cough Clopidogrel Bisulfate 75 mg 08/07/24 09:00 08/09/24 08:02 Clopidogrel Bisulfate 75 Mg Tablet PO 75 mg DAILY SAKINA Administration Dexamethasone 6 mg 08/08/24 15:45 08/09/24 07:35 Dexamethasone 2 Mg Tablet PO 6 mg DAILYWM2 SAKINA Administration Enoxaparin Sodium 40 mg 08/07/24 09:00 08/09/24 08:02 Enoxaparin Sodium 40 Mg/0.4 Ml Syr SUBCUT 40 mg DAILY SAKINA Administration Furosemide 20 mg 08/07/24 06:00 08/09/24 05:22 Furosemide 20 Mg Tablet PO 20 mg QDAC2 SAKINA Administration Guaifenesin/Dextromethorphan 5 ml 08/06/24 14:38 08/06/24 20:46 Guaifenesin/Dextromethorphan 200/20 Mg/10 Ml Cup PO 5 ml Q4H PRN Administration Cough Sodium Chloride 1,000 mls @ 75 mls/hr 08/09/24 09:00 08/09/24 09:11 Sodium Chloride IV 75 mls/hr .[id number] SAKINA Administration Isosorbide Mononitrate 60 mg 08/07/24 09:00 08/09/24 08:02 Isosorbide Mononitrate 30 Mg Tab.Er.24h PO 60 mg DAILY SAKINA Administration Levothyroxine Sodium 88 mcg 08/07/24 06:00 08/09/24 05:22 Levothyroxine Sodium 88 Mcg Tablet PO 88 mcg QDAC2 SAKINA Administration Lisinopril 5 mg 08/07/24 21:00 08/08/24 09:24 Lisinopril 5 Mg Tablet PO 5 mg DAILY SAKINA Administration Lorazepam 1 mg 08/06/24 21:00 08/08/24 20:02 Lorazepam 1 Mg Tablet PO 1 mg BEDTIME SAKINA Administration Metoprolol Succinate 50 mg 08/06/24 21:00 08/08/24 09:24 Metoprolol Succinate 50 Mg Tab.Er.24h PO 50 mg BID SAKINA Administration Ondansetron HCl 4 mg 08/06/24 12:33 Ondansetron Hcl/Pf 4 Mg/2 Ml Sdv IVP Q6H PRN Nausea / Vomiting Phenol/Menthol 1 spray 08/06/24 19:19 08/06/24 20:23 Phenol 1 [place] Btl MM 1 spray Q2H PRN Administration SORE THROAT Potassium Chloride 10 meq 08/07/24 07:30 08/09/24 07:35 Potassium Chloride 10 Meq Capsule.Er PO 10 meq DAILYWM2 SAKINA Administration Ranolazine 500 mg 08/06/24 21:00 08/09/24 08:01 Ranolazine 500 Mg Tab.Er.12h PO 500 mg 2XD SAKINA Administration Sodium Chloride 1 syr 08/08/24 05:35 08/09/24 05:22 0.9% Sodium Chloride 10 Ml Disp.Syrin IVF 1 syr Q8HR SAKINA Administration Sodium Chloride 1 syr 08/09/24 09:54 0.9% Sodium Chloride 10 Ml Disp.Syrin IVF PRN PRN Maintain IV Patency Assessment (1) Dysphagia: Status: Acute Code(s): R13.10 - Dysphagia, unspecified SNOMED Code(s): 93876671 Plan Plan: 1. Acute metabolic encephalopathy in setting of covid 19 - Resolving 2. Covid 19 - Has completed 3 doses of Remdesivir, continue conservative measures. Will add Mucinex today to try and thin secretions. 3. Acute hypoxic respiratory failure in setting of covid-19 - has been requiring oxygen since yesterday, decadron 6 mg daily added 4. Weakness - ptot consult 5. Hypertension - Cont home meds 6. Hyperlipidemia - Cont home meds 7. CAD - Cont home meds 8. Hypothyroidism - Cont home meds 9. HOLLY, stage 1 - Hold lasix, will do gentle hydration today DVT Prophylaxis: Lovenox Dispo: Planning to transition to swing bed once medically stable Review Statement Review Statement: I have personally discussed and reviewed the patient's visit/currently labs/imaging/decision making with Dr. Webb, my supervising attending. Greater that 50 minutes spent with patient, 50% of the time spent with this patient was devoted to counseling and coordination of care.
[2024-08-10 05:11] LABS: HEMOGLOBIN 12.8 g/dl (12.0-16.0); IMMATURE GRANULOCYTE % (AUTO) 0.2 % (0.0-5.0); LYMPHOCYTES # (AUTO) 0.5 K/uL (0.60-3.4); LYMPHOCYTES % (AUTO) 10.3 (10.0-50.0); MEAN CORPUSCULAR HEMOGLOBIN 28.8 pg (27.0-31.0); MEAN CORPUSCULAR HGB CONC 33.3 (31.8-35.4); MEAN CORPUSCULAR VOLUME 86.3 fl (81.0-99.0); MONOCYTES # (AUTO) 0.3 K/uL (0.4-2.0); MONOCYTES % (AUTO) 5.6 (0-10); NEUTROPHILS # (AUTO) 4.3 K/ul (2.0-6.9); NEUTROPHILS % (AUTO) 83.9 % (42.2-75.2); PLATELET COUNT 179 10^3/uL (140-440); RDW COEFFICIENT OF VARIATION 13.1 % (11.6-14.8); RED BLOOD COUNT 4.45 10^6/ul (4.20-5.40); WHITE BLOOD COUNT 5.17 K/ul (4.6-10.2)
[2024-08-10 05:17] LABS: HEMATOCRIT 38.4 % (37.0-47.0)
[2024-08-10 05:23] LABS: ALANINE AMINOTRANSFERASE 33.3 U/L (0-35); ALBUMIN 3.71 g/dL (3.5-5.0); ALKALINE PHOSPHATASE 66.7 U/L (53-141); ASPARTATE AMINO TRANSFERASE 55.8 U/L (14-36); BILIRUBIN,TOTAL 0.46 mg/dL (0.2-1.3); BLOOD UREA NITROGEN 53.7 mg/dL (7-17); CALCIUM 9.05 mg/dL (8.4-10.2); CARBON DIOXIDE 19.8 mmol/L (22-30.0); CHLORIDE 97.4 mmol/L (98-107); CREATININE 1.48 mg/dL (0.60-1.30); GLUCOSE 196.6 mg/dL (74-106); POTASSIUM 3.98 mmol/L (3.5-5.1); SODIUM 129.3 mmol/L (134.5-145); TOTAL PROTEIN 7.8 g/dL (6.3-8.2)
[2024-08-10 08:59] VITALS: BP 141/62; PULSE 72; RESP 18; TEMP 97.2
--- NOTE | 2024-08-10 09:22 | RS.DYSPHTX ---
Dysphagia Treatment Note Date of Note: 08/10/24 Time of Treatment: 08:00 Subjective: Patient participated in skilled speech therapy. She was alert and up in her bed eating breakfast. Total treatment time: 30 Short Term Goals Goal #1: Tolerate puree diet without s/s of aspiration. Activity/Accuracy: na, patient was upgraded to soft diet Goal #2: Tolerate mechanical soft diet without s/s of aspiration. Activity/Accuracy: patient is tolerating diet well with no s/s of aspiration Goal #3: Tolerate regular diet without s/s of aspiration. 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 Her breathe control has significantly improved. Units Charged Swallowing Therapy: 1
[2024-08-10] MEDS: MUCINEX PO SCH (09:23)
--- NOTE | 2024-08-10 09:57 | DCSUM ---
Admission Date Admission Date: 08/06/24 Discharge Date Discharge Date: 08/10/24 Admission Diagnosis Admission Diagnosis: 1. Acute metabolic encephalopathy in setting of covid 19 2. Covid 19 Discharge Diagnosis Discharge Diagnosis: 1. Acute metabolic encephalopathy in setting of covid 19 - resolved 2. Covid 19 3. Acute hypoxic respiratory failure in setting of covid-19 - improved 4. Weakness - ptot consult 5. Hypertension - Cont home meds 6. Hyperlipidemia - Cont home meds 7. CAD - Cont home meds 8. Hypothyroidism - Cont home meds 9. HOLLY, stage 1 - improved Hospital Provider Hospital Provider: ABDIEL [facility]ERR[facility]O [facility]-C, [facility] Primary Care Physician Primary Care Physician: ANA DUNLAP Summary of History and Physical Summary of History and Physical: Patient is a 79 year old female from home who presents for generalized weakness and confusion. Patient's daughter states she started feeling bad on 08/04. She co uld hardly get up yesterday and slid off the couch into the floor, requiring family's help. This morning she called family again asking to come help her. She was found in ER to have covid. CXR negative. Vitals stable. Labs unremarkable. However family did not feel safe taking her home at this time due to her condition. Hospital Course Subjective: Patient initially was very lethargic. She essentially slept on and off for three days, only waking to eat somewhat and would answer questions, then go back to sleep. CT head, UA, ABG all normal. On 08/09 patient was much more alert, oriented, and interactive. She appears to be back to her baseline. Her renal function has worsened slightly and her sodium has trended down. But otherwise she is doing well. She completed three days of remdesivir. She was started on decadron due to being mildly hypoxic requiring 1-3L of oxygen on and off. Plan is to transition to swingbed today, as patient is too weak to return home. Appearance: Pleasant, No Apparent Distress and Alert HEENT: MMM and Supple CVS: Other (RRR) Abdomen: Soft, Non-Tender and No Distention Respiratory: No Accessory Muscle Use Extremities: No Edema Vital Signs: Most Recent Vital Signs Temperature 97.2 F L 08/10/24 08:58 Temperature Source Temporal Artery Scan 08/10/24 08:58 Temperature Source Oral 08/06/24 10:28 Pulse Rate 72 08/10/24 08:58 Respiratory Rate 18 08/10/24 08:58 Blood Pressure 141/62 H 08/10/24 08:58 Blood Pressure Mean 88 08/10/24 08:58 Blood Pressure Left Arm 184/92 08/06/24 13:35 Blood Pressure Location Left Arm 08/10/24 08:58 Blood Pressure Position Supine 08/10/24 08:58 O2 Sat by Pulse Oximetry 99 08/10/24 08:58 Oxygen Delivery Method Nasal Cannula 08/10/24 08:58 Oxygen Flow Rate 1 08/10/24 08:58 Height 5 ft 6 in 08/09/24 09:21 Weight 85.1 kg 08/09/24 09:21 Telemetry Type Bedside Monitor 08/10/24 07:00 Telemetry Monitoring Continues 08/10/24 07:00 Telemetry Heart Rate 82 08/10/24 07:00 Telemetry SPO2 98 08/10/24 07:00 EKG NE Interval 0.22 H 08/10/24 07:00 EKG QRS Interval 0.06 08/10/24 07:00 Telemetry Strip Reading SR with 1st Degree AVB 08/10/24 07:00 Imaging: EXAM: CHEST RADIOGRAPH TECHNIQUE: Single frontal chest radiograph. HISTORY: Cough and fever. COMPARISON: 05/07/2024 and older studies. FINDINGS: The patient is leaning and rotated to the right. The patient's chin and partially obscures the right upper chest. Hypoventilation. Left subclavian dual lead cardiac device, grossly stable in position. Calcified granulomas of the left mid lung, again noted. No pulmonary infiltrate is identified. No pleural effusion or pneumothorax is seen. Heart size is normal. No acute displaced rib fractures are identified. IMPRESSION: 1. No acute findings in the chest. EXAM: CT HEAD WITHOUT CONTRAST HISTORY: Altered mental status COMPARISON: None TECHNIQUE: Serial axial images of the brain were obtained from the skull base to the vertex without IV contrast. FINDINGS: The ventricles, cisterns and sulci demonstrate generalized volume loss. The kearns-white matter junction is maintained. There is scattered low attenuation in the periventricular white matter.No midline shift or mass is iden tified. There is no abnormal intra or extra-axial fluid collection. The paranasal sinuses demonstrate scattered mucosal thickening. The mastoid air cells are clear. The osseous calvarium is intact. IMPRESSION: 1. No acute intracranial. 2. Generalized volume loss and scattered microangiopathy. EXAM: CHEST RADIOGRAPH TECHNIQUE: Single frontal chest radiograph. HISTORY: Hypoxia. COMPARISON: 08/06/2024 FINDINGS: The patient is mildly leaning to the right. Left subclavian cardiac device, grossly stable in position. EKG leads project over the chest. Calcified granulomas of the left mid to lower lung, again noted. No pulmonary infiltrate is identified. No pleural effusion or pneumothorax is seen. Heart size is normal. Patient is status post coronary artery stenting. No acute displaced rib fractures are identified. IMPRESSION: 1. No acute findings in the chest. Lab Results Last 24 Hours: 08/10/24 04:57 WBC 5.17 RBC 4.45 Hgb 12.8 Hct 38.4 D MCV 86.3 D MCH 28.8 MCHC 33.3 RDW Coeff of Crystal 13.1 Plt Count 179 Immature Gran % (Auto) 0.2 Neut % (Auto) 83.9 H Lymph % (Auto) 10.3 [place] % (Auto) 5.6 Eos % (Auto) 0.0 Baso % (Auto) 0.0 Neut # (Auto) 4.3 Lymph # (Auto) 0.5 L [place] # (Auto) 0.3 L Eos # (Auto) 0.0 Baso # (Auto) 0.0 Immature Gran # (Auto) 0.0 Sodium 129.3 L Potassium 3.98 Chloride 97.4 L Carbon Dioxide 19.8 L Anion Gap 16.08 BUN 53.7 H Creatinine 1.48 H Estimated GFR (MDRD) 34.00 BUN/Creatinine Ratio 36.28 Glucose 196.6 H Calcium 9.05 Total Bilirubin 0.46 AST 55.8 H ALT 33.3 Alkaline Phosphatase 66.7 Total Protein 7.80 Albumin 3.71 Globulin 4.09 Albumin/Globulin Ratio 0.90 Discharge Instructions Discharge Planning: Discharge Planning > [address] Inderjit Webb. Discharge Medications: Medications at Discharge (Home Meds & RX) Discharge Plan Discharge Discharge Orders: Discharge Patient (ONCE); Ordered 08/10/24 Ordered By: ABDIEL SERRANO Activity Restrictions/Additional Instructions: DISCHARGE TO SWINGBED Patient Disposition: DISCH W/I HOSP TO SWING BD Prescriptions: No Action clopidogrel 75 MG tablet 75 mg PO DAILY levothyroxine 88 MCG tablet 88 mcg PO DAILY lorazepam [Ativan] 0.5 MG tablet 1 mg PO BEDTIME potassium chloride 10 mEq tablet,ER particles/crystals 10 meq PO DAILY atorvastatin 40 mg tablet 40 mg PO BEDTIME isosorbide mononitrate 30 mg tablet extended release 24 hr 60 mg PO DAILY fluticasone propionate 50 mcg/actuation spray,suspension 2 spray INTRANASAL DAILY PRN (Reason: allergy symptoms) furosemide [Lasix] 20 mg tablet 20 mg PO DAILY acetaminophen [Tylenol Extra Strength] 500 mg Tablet 500 mg PO Q6H PRN (Reason: Pain) polyethylene glycol 3350 [Miralax] 17 gram/dose powder 17 g PO DAILY PRN (Reason: constipation) albuterol sulfate 90 mcg/actuation aerosol powdr breath activated 2 inh inhalation Q4H PRN (Reason: shortness of breath) Qty: 1 0RF metoprolol succinate [Toprol XL] 50 mg Tablet Extended Release 24 Hr 50 mg PO BID Qty: 30 0RF ranolazine 500 mg tablet extended release 12 hr 500 mg PO 2XD nitroglycerin 0.4 mg tablet, sublingual 0.4 mg sublingual Q5-15M PRN (Reason: chest pain) Rx Instructions: do not exceed 3 doses per episode amlodipine 5 mg tablet 5 mg PO BID Did you review [place] [employer] for ALL controlled substances?: Not Applicable Discussed opioids are addictive and Narcan is available by prescription or from pharmacy.: No Condition: Stable
== END 2024-08-10 10:20 | disposition swing bed (61) | DRG 70 ==
LOC: ED 10:18 → SCU 10:18
PROVIDERS: ADMIT Hospitalist; ATTEND Physician Assistant